=== PATIENT | male | born 1940 | race Caucasian/White ===

== ENCOUNTER 2019-12-30 11:54 | Inpatient (IN) | payer OTHER ==
[2019-12-30] MEDS ORDERED: CEFTRIAXONE/SWI 1gm 1 GM/10 ML SYR ONE (13:08)
[2019-12-30] MEDS ORDERED: NA CHLORIDE 0.9% 1,000 ML ONE ×2 (13:08→14:56)
[2019-12-30 13:11] LABS: Protime INR 1.16
--- NOTE | 2019-12-30 13:20 | RAD REPORT ---
EXAM DESCRIPTION: RAD - Chest Single View - 12/30/2019 1:02 pm CLINICAL HISTORY: COUGH Chest pain. COMPARISON: Chest Pa And Lat (2 Views) dated 10/06/2015 FINDINGS: Portable technique limits examination quality. The lungs are mildly emphysematous but grossly clear. The heart is normal in size. No displaced fract ures. IMPRESSION: No acute intrathoracic process suspected.
[2019-12-30 13:30] LABS: Albumin 2.4 g/dL (3.4-5.0); Bilirubin Direct 0.6 mg/dL (0-0.2); Bilirubin Total 1.1 mg/dL (0.2-1.0); Magnesium 2.1 mg/dL (1.8-2.4); Potassium 3.4 mmol/L (3.5-5.1); Protein, Total 6.1 g/dL (6.4-8.2); Troponin (Emerg Dept Use Only) 0.05 ng/mL (0.0-0.045)
[2019-12-30 13:32] LABS: Absolute Lymphocytes (CBC) 0.1 K/uL (0.7-4.9); Basophils % 0.2 % (0-1.3); Hematocrit 41.6 % (39.6-49.0); Lymphocytes % 1.3 % (15.3-44.8); MPV 8.9 fL (7.6-11.3); RBC Red Blood Cell Count 4.51 M/uL (4.33-5.43)
[2019-12-30 13:50] LABS: Blood Morphology Comment NOT SEEN (NOT SEEN); Platelet Estimate DECR; White Blood Cell Scan OK (OK)
--- NOTE | 2019-12-30 14:06 | EDPHYS ---
Physician Documentation [facility] Name: Ronan Mcnair Age: 79 yrs Sex: Male : 1940 Arrival Date: 12/30/2019 Time: 11:57 Bed 16 Private MD: Jimi Dudley V ED Physician Rashid Rodriguez HPI: 12/29 12:47 This 79 yrs old Male presents to ER via Wheelchair with complaints of Fever. prerna 12:47 The patient reports fever, that was measured at 100 degrees Fahrenheit. Onset: The prerna symptoms/episode began/occurred 4 day(s) ago. Modifying factors: there are no obvious modifying factors. Associated signs and symptoms: Pertinent positives: arthralgias, cough, myalgias, nausea. Severity of symptoms: At their worst the symptoms were mild moderate in the emergency department the symptoms are unchanged. The patient has experienced similar episodes in the past, a few times. Historical: - Allergies: 12:19 No Known Allergies; jd3 - PMHx: 12:19 Hypertension; jd3 - Immunization history:: Adult Immunizations up to date, Flu vaccine is up to date. - Social history:: Smoking status: unknown. ROS: 12:48 Eyes: Negative for injury, pain, redness, and discharge, ENT: Negative for injury, prerna pain, and discharge, Neck: Negative for injury, pain, and swelling, Cardiovascular: Negative for chest pain, palpitations, and edema, Respiratory: Negative for shortness of breath, cough, wheezing, and pleuritic chest pain, Abdomen/GI: Negative for abdominal pain, nausea, vomiting, diarrhea, and constipation, Back: Negative for injury and pain, : Negative for injury, bleeding, discharge, and swelling, MS/Extremity: Negative for injury and deformity, Skin: Negative for injury, rash, and discoloration, Psych: Negative for depression, anxiety, suicide ideation, homicidal ideation, and hallucinations, Allergy/Immunology: Negative for hives, rash, and allergies, Endocrine: Negative for neck swelling, polydipsia, polyuria, polyphagia, and marked weight changes, Hematologic/Lymphatic: Negative for swollen nodes, abnormal bleeding, and unusual bruising. 12:48 Constitutional: Positive for body aches, chills, fatigue, malaise, poor PO intake. 12:48 Neuro: Positive for weakness. Exam: 12:48 Constitutional: This is a well developed, well nourished patient who is awake, alert, prerna and in no acute distress. Head/Face: Normocephalic, atraumatic. Eyes: Pupils equal round and reactive to light, extra-ocular motions intact. Lids and lashes normal. Conjunctiva and sclera are non-icteric and not injected. Cornea within normal limits. Periorbital areas with no swelling, redness, or edema. ENT: Nares patent. No nasal discharge, no septal abnormalities noted. Tympanic membranes are normal and external auditory canals are clear. Oropharynx with no redness, swelling, or masses, exudates, or evidence of obstruction, uvula midline. Mucous membranes moist. Neck: Trachea midline, no thyromegaly or masses palpated, and no cervical lymphadenopathy. Supple, full range of motion without nuchal rigidity, or vertebral point tenderness. No Meningismus. Chest/axilla: Normal chest wall appearance and motion. Nontender with no deformity. No lesions are appreciated. Respiratory: Lungs have equal breath sounds bilaterally, clear to auscultation and percussion. No rales, rhonchi or wheezes noted. No increased work of breathing, no retractions or nasal flaring. Abdomen/GI: Soft, non-tender, with normal bowel sounds. No distension or tympany. No guarding or rebound. No evidence of tenderness throughout. Back: No spinal tenderness. No costovertebral tenderness. Full range of motion. Male : Normal genitalia with no discharge or lesions. Skin: Warm, dry with normal turgor. Normal color with no rashes, no lesions, and no evidence of cellulitis. MS/ Extremity: Pulses equal, no cyanosis. Neurovascular intact. Full, normal range of motion. Neuro: Awake and alert, GCS 15, oriented to person, place, time, and situation. Cranial nerves II-XII grossly intact. Motor strength 5/5 in all extremities. Sensory grossly intact. Cerebellar exam normal. Normal gait. Psych: Awake, alert, with orientation to person, place and time. Behavior, mood, and affect are within normal limits. 12:48 Cardiovascular: Rate: tachycardic, Rhythm: regular, Pulses: Pulses are 4+ in bilateral radial, brachial, femoral, popliteal, posterior tibial and and dorsalis pedis arteries.. Heart sounds: normal, Edema: is not appreciated, JVD: is not appreciated. 13:46 ECG was reviewed by the Attending Physician. prerna Vital Signs: 12:19 BP 91 / 68; Pulse 123; Resp 20 S; Temp 98.3(O); Pulse Ox 96% on R/A; Weight 65.77 kg jd3 (R); Height 5 ft. 7 in. (170.18 cm) (R); Pain 10/10; 13:18 BP 94 / 56; Pulse 106; Resp 15 S; Temp 98.4(O); Pulse Ox 95% on R/A; ca1 14:12 BP 105 / 57; Pulse 99; Resp 21 S; Pulse Ox 96% on R/A; ca1 15:17 BP 109 / 65; Pulse 102; Resp 20; Temp 98.7(O); Pulse Ox 98% on R/A; ca1 16:05 BP 113 / 62; Pulse 108; Resp 22; Pulse Ox 97% on R/A; ca1 12:19 Body Mass Index 22.71 (65.77 kg, 170.18 cm) jd3 MDM: 12:12 Patient medically screened. prerna 12:49 Differential diagnosis: viral Infection, bacterial infection, URI, pneumonia UTI, prerna gastroenteritis. Differential Diagnosis altered mental status, sepsis, flu. Data reviewed: vital signs, nurses notes, EMS record, lab test result(s), EKG, radiologic studies, CT scan, plain films. Data interpreted: desk monitor: rate is 123 beats/min, rhythm is regular, Pulse oximetry: on room air is 96 %. Test interpretation: by ED physician or midlevel provider: ECG, plain radiologic studies. Counseling: I had a detailed discussion with the patient and/or guardian regarding: the historical points, exam findings, and any diagnostic results supporting the discharge/admit diagnosis, lab results, radiology results, the need for further work-up and treatment in the hospital. 12/29 12:46 Order name: Basic Metabolic Panel [facility] 12/29 12:46 Order name: CBC with Diff [facility] 12/29 12:46 Order name: LFT's; Complete Time: 13:46 [facility] 12/29 12:46 Order name: Magnesium; Complete Time: 13:46 [facility] 12/29 12:46 Order name: NT PRO-BNP; Complete Time: 13:46 [facility] 12/29 12:46 Order name: PT-INR; Complete Time: 13:46 [facility] 12/29 12:46 Order name: Troponin (emerg Dept Use Only); Complete Time: 13:46 [facility] 12/29 12:46 Order name: Lipase; Complete Time: 13:46 [facility] 12/29 12:46 Order name: Urine Culture [facility] 12/29 12:46 Order name: Lactate; Complete Time: 13:46 [facility] 12/29 12:46 Order name: Procalcitonin; Complete Time: 14:00 [facility] 12/29 12:46 Order name: Influenza Screen (a \T\ B); Complete Time: 14:00 [facility] 12/29 12:46 Order name: Basic Metabolic Panel; Complete Time: 13:46 [facility] 12/29 12:46 Order name: XRAY Chest (1 view); Complete Time: 13:46 [facility] 12/29 12:47 Order name: CBC with Automated Diff; Complete Time: 14:00 [facility] 12/29 13:32 Order name: SARS-COV-2 RT PCR [facility] 12/29 13:50 Order name: CBC Smear Scan; Complete Time: 14:00 [facility] 12/29 14:00 Order name: CK; Complete Time: 14:31 [facility] 12/29 14:00 Order name: Ckmb; Complete Time: 14:31 [facility] 12/29 14:00 Order name: Pelvis XRAY [facility] 12/29 14:08 Order name: Blood Culture Adult (2) [facility] 12/29 14:11 Order name: Stool Culture [facility] 12/29 14:11 Order name: Fecal Leukocyte Stain [facility] 12/29 14:11 Order name: CDIFF [facility] 12/29 14:44 Order name: RAD [facility] 12/29 16:27 Order name: Lactate Sepsis 2 HR Follow-up [facility] 12/29 12:46 Order name: EKG; Complete Time: 12:47 [facility] 12/29 12:46 Order name: Cardiac monitoring; Complete Time: 12:53 [facility] 12/29 12:46 Order name: EKG - Nurse/Tech; Complete Time: 12:53 [facility] 12/29 12:46 Order name: IV Saline Lock; Complete Time: 12:52 [facility] 12/29 12:46 Order name: Labs collected and sent; Complete Time: 12:52 [facility] 12/29 12:46 Order name: O2 Per Protocol; Complete Time: 12:52 [facility] 12/29 12:46 Order name: O2 Sat Monitoring; Complete Time: 12:52 [facility] 12/29 12:46 Order name: Urine Dipstick-Ancillary (obtain specimen); Complete Time: 16:33 [facility] 12/29 14:32 Order name: PO challenge: water; Complete Time: 16:33 [facility] EC:46 Rate is 115 beats/min. Rhythm is regular. QRS [place] is Normal. OK interval is normal. prerna QRS interval is normal. QT interval is normal. No Q waves. T waves are Normal. No ST changes noted. Clinical impression: NSR w/ Non-specific ST/T Changes and No evidence of ischemia. Interpreted by me. Reviewed by me. Administered Medications: 12:54 Drug: NS 0.9% 1000 ml Route: IV; Rate: 1 bolus; Site: left forearm; ca1 14:00 Follow up: Response: No adverse reaction; IV Status: Completed infusion; IV Intake: ca1 1000ml 13:00 Drug: Rocephin 1 grams Route: IV; Rate: per protocol; Site: left forearm; ca1 13:30 Follow up: Response: No adverse reaction; IV Status: Completed infusion ca1 14:10 Drug: NS 0.9% 1000 ml Route: IV; Rate: 1 bolus; Site: right forearm; ca1 16:07 Follow up: Response: No adverse reaction; IV Status: Completed infusion; IV Intake: ca1 1000ml 14:35 Drug: Potassium Effervescent Tablet 25 mEq Route: PO; ca1 15:20 Follow up: Response: No adverse reaction ca1 14:52 Drug: Flagyl 500 mg Volume: 100 ml; Route: IVPB; Rate: 200 ml/hr; Infused Over: 30 ca1 mins; Site: left forearm; 15:24 Follow up: IV Status: Completed infusion; IV Intake: 100ml ca1 15:26 Drug: Cipro 200 mg Volume: 100 ml; Route: IVPB; Infused Over: 60 mins; Site: right ca1 antecubital; 16:30 Follow up: Response: No adverse reaction; IV Status: Completed infusion; IV Intake: ca1 200ml Disposition: 12/30/19 14:05 Hospitalization ordered by Jimi Dudley for Inpatient Admission. Preliminary diagnosis are Repeated falls, Weakness, Fever, unspecified, Diarrhea, unspecified, Hypokalemia, Sepsis, unspecified organism. - Bed requested for Telemetry/MedSurg (Inpatient). - Status is Inpatient Admission. ca1 - Condition is Fair. - Problem is new. - Symptoms have improved. Signatures: Dispatcher [employer] EDMN Rashid Rodriguez MD MD cha Davies, Jonathon RN RN jd3 Sintia Villalobos Cheryl, RN RN ca1 Corrections: (The following items were deleted from the chart) 13:31 12:47 CORONAVIRUS+MR.LAB.BRZ ordered. [facility] 15:55 14:05 Hospitalization Ordered by Jimi Dudley MD for Inpatient Admission. Preliminary eb diagnosis is Repeated falls; Weakness; Fever, unspecified; Diarrhea, unspecified; Hypokalemia; Sepsis, unspecified organism. Bed requested for Telemetry/MedSurg (Inpatient). Status is Inpatient Admission. Condition is Fair. Problem is new. Symptoms have improved. [facility] 16:48 15:55 12/30/2019 14:05 Hospitalization Ordered by Jimi Dudley MD for Inpatient ca1 Admission. Preliminary diagnosis is Repeated falls; Weakness; Fever, unspecified; Diarrhea, unspecified; Hypokalemia; Sepsis, unspecified organism. Bed requested for Telemetry/MedSurg (Inpatient). Status is Inpatient Admission. Condition is Fair. Problem is new. Symptoms have improved. eb
--- NOTE | 2019-12-30 14:06 | ER ---
Nurse's Notes [facility] Name: Ronan Mcnair Age: 79 yrs Sex: Male : 1940 Arrival Date: 12/30/2019 Time: 11:57 Bed 16 Private MD: Jimi Dudley V Diagnosis: Repeated falls;Weakness;Fever, unspecified;Diarrhea, unspecified;Hypokalemia;Sepsis, unspecified organism Presentation: 12/29 12:17 Chief complaint: Patient states: "For the past 3 days I have been having fever, nausea, jd3 vomiting, fever, and diarrhea. It has gotten so bad now that I am not able to walk and I get dizzy very easily. I was running a 102.7 fever and I took 1 Tylenol 500 mg before coming today.". Coronavirus screen: diarrhea, fatigue, fever, vomiting. Client presents with at least one sign or symptom that may indicate coronavirus-19. Standard/surgical mask placed on the client. Provider contacted for isolation considerations. Ebola Screen: Patient negative for fever greater than or equal to 101.5 degrees Fahrenheit, and additional compatible Ebola Virus Disease symptoms. Initial Sepsis Screen: Does the patient meet any 2 criteria? HR > 90 bpm. No. Patient's initial sepsis screen is negative. Does the patient have a suspected source of infection? No. Patient's initial sepsis screen is negative. Risk Assessment: Do you want to hurt yourself or someone else? Patient reports no desire to harm self or others. Onset of symptoms was December 27, 2019. 12:17 Method Of Arrival: Wheelchair jd3 12:17 Acuity: CROW 2 jd3 Historical: - Allergies: 12:19 No Known Allergies; jd3 - PMHx: 12:19 Hypertension; jd3 - Immunization history:: Adult Immunizations up to date, Flu vaccine is up to date. - Social history:: Smoking status: unknown. Screenin:10 Abuse screen: Denies threats or abuse. Denies injuries from another. Nutritional ca1 screening: No deficits noted. Tuberculosis screening: No symptoms or risk factors identified. Fall Risk IV access (20 points). Gait- Weak (10 pts.). Total Caraballo Fall Scale indicates Low Risk Score (25-44 pts). Fall prevention measures have been instituted. Side Rails Up X 2 Family Present and informed to notify staff if they need to leave bedside As available Patient and Family Educated on Fall Prevention Program and strategies. Assessment: 12:10 General: Appears in no apparent distress. comfortable, Behavior is calm, cooperative, ca1 appropriate for age, Reports fever for feeling ill for > 3 days. Pain: Complains of pain in right leg and left leg Pain does not radiate. Pain began 2-3 days ago. Neuro: Level of Consciousness is awake, alert, obeys commands, Oriented to person, place, time, situation. Cardiovascular: Heart tones S1 S2 present Capillary refill < 3 seconds Patient's skin is warm and dry. Pulses are all present. Rhythm is sinus tachycardia. Respiratory: Airway is patent Respiratory effort is even, unlabored, Respiratory pattern is regular, symmetrical, Breath sounds are clear bilaterally. Denies cough, shortness of breath. GI: Abdomen is flat, non-distended, Bowel sounds present X 4 quads. Abd is soft and non tender X 4 quads. Reports diarrhea, nausea. : No signs and/or symptoms were reported regarding the genitourinary system. EENT: No signs and/or symptoms were reported regarding the EENT system. Derm: Skin is intact, is healthy with good turgor, Skin is pink, warm \\T\\ dry. Musculoskeletal: Circulation, motion, and sensation intact. Capillary refill < 3 seconds. 13:18 Reassessment: Patient appears in no apparent distress at this time. Patient and/or ca1 family updated on plan of care and expected duration. Pain level reassessed. Patient is alert, oriented x 3, equal unlabored respirations, skin warm/dry/pink. 14:12 Reassessment: Patient appears in no apparent distress at this time. Patient and/or ca1 family updated on plan of care and expected duration. Pain level reassessed. Patient is alert, oriented x 3, equal unlabored respirations, skin warm/dry/pink. 15:17 Reassessment: Patient appears in no apparent distress at this time. Patient and/or ca1 family updated on plan of care and expected duration. Pain level reassessed. Patient is alert, oriented x 3, equal unlabored respirations, skin warm/dry/pink. 16:05 Reassessment: Patient appears in no apparent distress at this time. Patient and/or ca1 family updated on plan of care and expected duration. Pain level reassessed. Patient is alert, oriented x 3, equal unlabored respirations, skin warm/dry/pink. Vital Signs: 12:19 BP 91 / 68; Pulse 123; Resp 20 S; Temp 98.3(O); Pulse Ox 96% on R/A; Weight 65.77 kg jd3 (R); Height 5 ft. 7 in. (170.18 cm) (R); Pain 10/10; 13:18 BP 94 / 56; Pulse 106; Resp 15 S; Temp 98.4(O); Pulse Ox 95% on R/A; ca1 14:12 BP 105 / 57; Pulse 99; Resp 21 S; Pulse Ox 96% on R/A; ca1 15:17 BP 109 / 65; Pulse 102; Resp 20; Temp 98.7(O); Pulse Ox 98% on R/A; ca1 16:05 BP 113 / 62; Pulse 108; Resp 22; Pulse Ox 97% on R/A; ca1 12:19 Body Mass Index 22.71 (65.77 kg, 170.18 cm) [facility] ED Course: 11:57 Patient arrived in ED. as 11:57 Jimi Dudley MD is Private Physician. as 12:09 Fanny Estrella, LIGIA is Primary Nurse. ca1 12:10 Patient has correct armband on for positive identification. Placed in gown. Bed in low ca1 position. Call light in reach. Side rails up X2. potline monitor on. Pulse ox on. NIBP on. Warm blanket given. 12:12 Rashid Rodriguez MD is Attending Physician. prerna 12:19 Triage completed. jd3 12:20 Arm band placed on. jd3 12:50 No provider procedures requiring assistance completed. Initial lab(s) drawn, by me, ca1 sent to lab. Inserted saline lock: 20 gauge in left forearm, using aseptic technique. Blood collected. 13:02 XRAY Chest (1 view) In Process Unspecified. EDMS 13:19 Flu and/or RSV swab sent to lab. ca1 14:03 Jimi Dudley MD is Hospitalizing Provider. prerna 14:30 First set of blood cultures drawn by ED staff, Second set of blood cultures drawn by me.mh5 14:43 Inserted saline lock: 22 gauge in right antecubital area, using aseptic technique. mh5 Blood collected. 14:46 Blood Culture Adult (2) Sent. mh5 16:02 Repeat lab(s) drawn. by ED staff, sent to lab. Patient admitted, IV remains in place. ca1 16:33 Urine collected: straight cath specimen, cloudy. Straight cath inserted, using sterile ca1 technique, 16 Fr. Specimen obtained. Administered Medications: 12:54 Drug: NS 0.9% 1000 ml Route: IV; Rate: 1 bolus; Site: left forearm; ca1 14:00 Follow up: Response: No adverse reaction; IV Status: Completed infusion; IV Intake: ca1 1000ml 13:00 Drug: Rocephin 1 grams Route: IV; Rate: per protocol; Site: left forearm; ca1 13:30 Follow up: Response: No adverse reaction; IV Status: Completed infusion ca1 14:10 Drug: NS 0.9% 1000 ml Route: IV; Rate: 1 bolus; Site: right forearm; ca1 16:07 Follow up: Response: No adverse reaction; IV Status: Completed infusion; IV Intake: ca1 1000ml 14:35 Drug: Potassium Effervescent Tablet 25 mEq Route: PO; ca1 15:20 Follow up: Response: No adverse reaction ca1 14:52 Drug: Flagyl 500 mg Volume: 100 ml; Route: IVPB; Rate: 200 ml/hr; Infused Over: 30 ca1 mins; Site: left forearm; 15:24 Follow up: IV Status: Completed infusion; IV Intake: 100ml ca1 15:26 Drug: Cipro 200 mg Volume: 100 ml; Route: IVPB; Infused Over: 60 mins; Site: right ca1 antecubital; 16:30 Follow up: Response: No adverse reaction; IV Status: Completed infusion; IV Intake: ca1 200ml Intake: 14:00 IV: 1000ml; Total: 1000ml. ca1 15:24 IV: 100ml; Total: 1100ml. ca1 16:07 IV: 1000ml; Total: 2100ml. ca1 16:30 IV: 200ml; Total: 2300ml. ca1 Outcome: 14:05 Decision to Hospitalize by Provider. prerna 16:13 Admitted to Med/surg accompanied by tech, via wheelchair, room 210, with chart, Report ca1 called to 210 16:13 Condition: stable 16:13 Instructed on the need for admit. 16:48 Patient left the ED. ca1 Signatures: Dispatcher [employer] EDRashid Douglas MD MD cha Martinez, Amelia as Martinez Oralia 5 Scottie Mehta RN RN jd3 Fanny Estrella RN RN ca1 Corrections: (The following items were deleted from the chart) 12:20 12:17 Initial Sepsis Screen: Does the patient meet any 2 criteria? No. Patient's jd3 initial sepsis screen is negative. Does the patient have a suspected source of infection? No. Patient's initial sepsis screen is negative. jd3
--- NOTE | 2019-12-30 14:43 | RAD REPORT ---
EXAM DESCRIPTION: RAD - Pelvis - 12/30/2019 2:30 pm CLINICAL HISTORY: pain, falls COMPARISON: Chest Single View dated 12/30/2019; Chest Abdomen Pelvis W Cont dated 02/08/2019 FINDINGS: Mild osteopenia. Mild degenerative change in both hips. No acute fracture or dislocation. No radiographic findings of AVN.
[2019-12-30] MEDS ORDERED: METRONIDAZOLE 500mg IVPB 500 MG/100 ML BAG IV ONE (14:56)
[2019-12-30] MEDS ORDERED: POTASSIUM 25 MEQ EFFERV TAB ONE (14:56)
[2019-12-30] MEDS ORDERED: Ciprofloxacin 200mg IV 200 MG/100 ML IV.SOLN. IV ONE (14:56)
[2019-12-30] MEDS ORDERED: NA CHLORIDE 0.9% 1,000 ML IV SCH ×2 (16:20→21:00)
[2019-12-30] MEDS ORDERED: ONDANSETRON 4 MG/2 ML VIAL IV PRN (16:20)
[2019-12-30] MEDS ORDERED: MORPHINE 2 MG/ML SYR IV PRN (16:20)
[2019-12-30] MEDS ORDERED: ACETAMINOPHEN 325 MG TABLET PO PRN (16:20)
[2019-12-30 17:41] VITALS: BMI 22.7
--- NOTE | 2019-12-30 20:56 | P.HP ---
Certification for Inpatient Patient admitted to: Inpatient With expected LOS: >2 Midnights Practitioner: I am a practitioner with admitting privileges, knowledge of patient current condition, hospital course, and medical plan of care. Services: Services provided to patient in accordance with Admission requirements found in Title 42 Section 412.3 of the Code of Federal Regulations Patient History Date of Service: 12/30/19 Reason for admission: NOT ABLE TO WALK WITHOUT FALLING, FEVER. History of Present Illness: MR. SCHNEIDER CALLS ME A FEW DAYS AGO WITH EAR PAIN AND CONGESTION. HE WAS GIVEN AUGEMTIN AFTER A TELEHEALTH VISIT. TODAY CALLS ME ON TUESDAY THAT HE IS STUMBLING AND STILL HAS FEVER. I ASKED HER TO BRING HIM TO ER. WE FIND THAT HE HAS DEHYDRATION ON LABWORK, MILD ELEVATION OF WBC COUNT, HIGH LACTATE AND HIGH PROCALCITONIN. WE COULD NOT DO CT SCAN OF ABDOMEN CREAT IS MILD HIGH. HE TODAY SAYS HE HAS NO EAR PAIN OR ANY CONGESTION. HE DEVELOPED DIARRHEA AFTER AUGMENTIN. HE COMPLAINS OF UPPER THIGH PAIN NEAR THE GROINS ON BOTH SIDES. HE LIVES IN [place]. Allergies No Known Allergies Allergy (Unverified 12/30/19 16:19) Home Medications: Aspirin [Aspirin EC 81 MG] 81 mg PO BEDTIME 12/30/19 Bacillus Coagulans [Probiotic] 2 gum PO DAILY 12/30/19 Carvedilol [Coreg] 3.125 mg PO BID 12/30/19 Clopidogrel Bisulfate [Plavix*] 75 mg PO DAILY 12/30/19 Codeine/APAP [Tylenol #3*] 1 tab PO TIDP PRN 12/30/19 Levothyroxine [Synthroid*] 100 mcg PO DAILY 12/30/19 Liothyronine Sodium [Cytomel] 5 mcg PO DAILY 12/30/19 Lisinopril [Zestril] 10 mg PO DAILY 12/30/19 Montelukast [Singulair*] 10 mg PO DAILY 12/30/19 Multivitamin 1 tab PO DAILY 12/30/19 Pravastatin Sodium 40 mg PO DAILY 12/30/19 Ubidecarenone [Co Q-10] 2 cap PO DAILY 12/30/19 Vit C/E/Zn/Coppr/Lutein/Zeaxan [Preservision Areds 2 Softgel] 1 cap PO DAILY 12/30/19 - Past Medical/Surgical History Has patient received pneumonia vaccine in the past: No Diabetic: No -: Hypertension -: Arthritis -: Hypothyroidism -: Hyperlipidemia -: GERD -: Cardiac Stents x3 2017 -: Throat stretched x 3 -: Bilateral Cataracts removal -: Hernia surgery - Family History Father -: Heart disease Notes: - heart attack Mother Notes: - alzheimer's - Social History Smoking Status: Never smoker Alcohol use: Yes CD- Drugs: No Caffeine use: No Place of Residence: Home Review of Systems 10-point ROS is otherwise unremarkable General: Weakness, Malaise Neurological: Incoordination, As per HPI Physical Examination - Vital Signs Temperature: 102.2 F Blood Pressure: 112/58 Pulse: 125 Respirations: 20 Pulse Ox (%): 94 - Physical Exam General: Mild distress HEENT: Atraumatic, PERRLA, Mucous membr. moist/pink, EOMI, Sclerae nonicteric Neck: Supple, 2+ carotid pulse no bruit, No LAD, Without JVD or thyroid abnormality Respiratory: Clear to auscultation bilaterally, Normal air movement Cardiovascular: Regular rate/rhythm, Normal S1 S2 Gastrointestinal: Normal bowel sounds, No tenderness Musculoskeletal: No tenderness Integumentary: No rashes Neurological: Normal speech, Sensation intact, Normal affect, Abnormal strength (HE IS NOT ABLE TO LIFT THIGHS UP WITHOUT PAIN ON EITHER SIDE.), Abnormal reflexes (BOTH SIDES ALL REFLEXES ARE ABSENT BUT ALSO HE IS IN PAIN , THAT CAN GIVE FALSE NEGATIVE.) Lymphatics: No axilla or inguinal lymphadenopathy - Studies Laboratory Data (last 24 hrs) 12/30/19 13:01: PT 13.6 H, INR 1.16 12/30/19 13:01: WBC 11.2 H, Hgb 14.5, Hct 41.6, Plt Count 85 L 12/30/19 13:01: Sodium 134 L, Potassium 3.4 L, BUN 46 H, Creatinine 1.83 H, Glucose 125 H, Magnesium 2.1, Total Bilirubin 1.1 H, AST 86 H, ALT 69, Alkaline Phosphatase 45, Lipase 99 Microbiology Data (last 24 hrs): 12/30/19 13:17 Nasopharnyx Influenza Type A Antigen Screen - Final 12/30/19 13:17 Nasopharnyx Influenza Type B Antigen Screen - Final Assessment and Plan - Problems (Diagnosis) (1) FUO (fever of unknown origin) Current Visit: Yes Status: Acute Plan: PATIENT HAS FEVER, HAD EAR PAIN BUT NOT ANY LONGER, HE DOES NOT HAVE ANY MENINGIAL SIGNS BUT THIGHS ARE PAINFUL AND LIFTING LEGS GIVES HIM PAIN IN ANTERIOR THIGHS UPPER ENDS. I DON'T SEE A CLEAR SIGN OF INFECTION SOURCE. CXR NEG, ABDOMEN IS SOFT, DIARRHEA MAY BE FROM AUGMNETIN. HE DOES NOT HAVE CLEAR MENINGEAL SIGNS. I WILL STILL ORDER MRI OF LS SPINE, MRI OF BRAIN AND SPINAL TAP. HE DOES NOT LIVE IN [place] WHERE NAEGLERIA FOWLERI HAS BEEN FOUND IN THE WATER SYSTEM. THIS AMEBA IS ONLY DANGEROUS IF IT REACHES CRIBRIFORM PLATE OF THE NOSE AT THE HIGHEST END. SPINAL TAP IS NECESSARY HE HAS THIGH PAINS AND IS NOT ABLE TO LIFT LEGS WITHOUT TOO MUCH PAIN. I WILL ALSO CHECK CPK, ALDOLASE, VIT D. BLOOD CULTURES ARE PENDING. I WILL COVER HIM WITH VANCOMYCIN AND MERREM UNTIL THIS HAS BEEN RULED OUT TO BE MENINGITIS. MEDICATIONS LIKE CORIFUNGIN ARE NOT AVAILABLE HERE. SUSPICION IS LOW FOR AMEBIC INFECTION. DISCUSSED WITH . 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 - Advance Directives Does patient have a Living Will: No Does patient have a Durable POA for Healthcare: No
[2019-12-30] MEDS: FAMOTIDINE 20 MG/2 ML VIAL IV SCH (21:00)
[2019-12-30] MEDS ORDERED: Ciprofloxacin 200mg IV 200 MG/100 ML IV.SOLN. IV SCH (21:00)
[2019-12-30] MEDS ORDERED: METRONIDAZOLE 500mg IVPB 500 MG/100 ML BAG IV SCH (21:00)
[2019-12-30] MEDS ORDERED: CODEINE 30MG/APAP 300MG TAB PO PRN (21:22)
[2019-12-30 21:43] LABS: MPV 9.3 fL (7.6-11.3)
[2019-12-30 22:00] LABS: Platelet Estimate DECR
[2019-12-30] MEDS ORDERED: VANCOMYCIN/NS 1 gm 1 GM/250 ML BAG IVPB ONE ×2 (22:00→22:15)
[2019-12-30] MEDS ORDERED: Ringers Lactate 1,000 ML IV ONE (22:00)
[2019-12-30] MEDS ORDERED: NA CHLORIDE 0.9% 250 ML ONE (22:18)
[2019-12-30] MEDS ORDERED: VANCOMYCIN 1 GM/VIAL ONE (22:21)
[2019-12-31] MEDS ORDERED: Meropenem 500 MG VIAL IV SCH (01:00)
[2019-12-31] MEDS ORDERED: Meropenem 500 MG in NA CHLORIDE 0.9% 100 ML IV SCH (01:00)
[2019-12-31] MEDS: Ringers Lactate 1,000 ML IV SCH ×6 (03:02→23:07)
[2019-12-31 04:36] LABS: Absolute Lymphocytes (CBC) 0.3 K/uL (0.7-4.9); Basophils % 0.2 % (0-1.3); Hematocrit 38.4 % (39.6-49.0); Lymphocytes % 2.1 % (15.3-44.8); MPV 8.9 fL (7.6-11.3); RBC Red Blood Cell Count 4.15 M/uL (4.33-5.43)
[2019-12-31 05:12] LABS: Potassium 3.6 mmol/L (3.5-5.1)
[2019-12-31] MEDS ORDERED: LEVOTHYROXINE SOD 0.1 MG TAB PO SCH (06:30)
[2019-12-31] MEDS ORDERED: LIOTHYRONINE SOD 5 MCG TAB PO SCH (06:30)
--- NOTE | 2019-12-31 07:23 | RAD REPORT ---
EXAM DESCRIPTION: US - Extrem Venous W Compress Vidal - 12/30/2019 10:11 pm CLINICAL HISTORY: LEG PAINS COMPARISON: None. TECHNIQUE: Real-time sonographic evaluation of the bilateral lower extremity common femoral, superfi cial femoral, popliteal and posterior tibial veins was performed. FINDINGS: Normal compressibility, flow augmentation, phasic flow and spontaneous flow are identified in the left and right lower extremity common femoral, superficial femoral, popliteal and posterior t ibial veins. No intraluminal filling defects seen. IMPRESSION: No DVT in either lower extremity.
[2019-12-31 07:29] LABS: Bilirubin Direct 0.9 mg/dL (0-0.2); Bilirubin Total 1.3 mg/dL (0.2-1.0); Protein, Total 4.8 g/dL (6.4-8.2)
[2019-12-31] MEDS: carvediloL 3.125 MG TAB PO SCH ×2 (08:14→21:27)
[2019-12-31] MEDS: Meropenem 500 MG in NA CHLORIDE 0.9% 100 ML IV SCH ×2 (08:14→21:26)
[2019-12-31] MEDS: FAMOTIDINE 20 MG/2 ML VIAL IV SCH ×2 (08:14→21:27)
[2019-12-31] MEDS ORDERED: PNEUMOCOCCAL VACCINE 0.5 ML IMVAC ONE (09:00)
[2019-12-31] MEDS ORDERED: LACTOBACILLUS/ACIDOPHILUS TAB PO SCH (09:00)
[2019-12-31] MEDS ORDERED: ENOXAPARIN 40 MG/0.4 ML SQ SCH (09:00)
[2019-12-31] MEDS ORDERED: CLOPIDOGREL 75 MG TABLET PO SCH (09:00)
--- NOTE | 2019-12-31 10:17 | RAD REPORT ---
EXAM DESCRIPTION: CT - Head Brain Wo Cont - 12/31/2019 9:03 am CLINICAL HISTORY: fever weakness COMPARISON: No comparisons TECHNIQUE: Axial 5 mm thick images of the head were obtained without IV contrast. All CT scans are performed using dose optimization technique as appropriate and may include automated exposure control or mA/KV adjustment according to patient size. FINDINGS: No intracranial hemorrhage, mass, edema or shift of mid-line structures. No acute infarcti on changes seen. No abnormal extra-axial fluid collections. Mild atrophy and chronic ischemic changes are present. Ventricles are in proportion to the volume loss. Mastoid air cells are clear. There is complete opacification of the right maxillary sinus with sinus wall changes indicating chronic disease. No acute bony findings. IMPRESSION: Mild atrophy and chronic ischemic change. No acute intracranial finding. Chronic right maxillary sinusitis with complete sinus opacification.
--- NOTE | 2019-12-31 10:23 | RAD REPORT ---
EXAM DESCRIPTION: RAD - Lumbar Puncture For Dx - 12/31/2019 10:16 am CLINICAL HISTORY: Headache, meningitis COMPARISON: None. TECHNIQUE: The procedure, risks and alternatives to the procedure were discussed with the patient in detail. After answering all questions, both oral and written consent were obtained. Time-out proced ure was performed. The patient was placed in an oblique prone position on the fluoroscopic table. The skin of the lower back was prepped and draped in the usual sterile fashion. After anesthetizing the skin and deeper sof t tissues with 1% lidocaine, a 22 gauge needle was advanced into the thecal sac at the L4 level. Clear colorless CSF was observed. Approximately 8 mL of CSF was obtained and retained for physician o rdered studies. At the conclusion of the procedure, the needle was withdrawn and a sterile bandage placed over the pu ncture site. The patient tolerated the procedure well without immediate complications. Post-procedu re care and precaution instructions were discussed with the patient before the LP procedure. Patient was transferred back to the floor for continued care. A single fluoroscopic image was retained. Fluoro time was 2.0 minutes. IMPRESSION: Successful fluoroscopic guided lumbar puncture. All obtained fluid was sent to the lab for studies requested by the referring physician.
[2019-12-31 11:10] LABS: CSF Glucose 46 mg/dL (40-70)
[2019-12-31] MEDS ORDERED: NA CHLORIDE 0.9% 500 ML IV ONE (11:11)
--- NOTE | 2019-12-31 13:07 | P.PN ---
Subjective Date of Service: 12/31/19 Chief Complaint: NOT ABLE TO WALK WITHOUT FALLING, FEVER. Subjective: No new changes, C/O voiced MR. SCHNEIDER SAYS HE IS SOMEWHAT BETTER IN UPPER THIGH PAIN. HE IS STILL VERY WEAK. HE DENIES CHEST PAIN, COUGHING OR EAR PAIN. Review of Systems 10-point ROS is otherwise unremarkable General: Weakness, Malaise Physical Examination - Vital Signs Temperature: 98.5 F Blood Pressure: 101/61 Pulse: 115 Respirations: 20 Pulse Ox (%): 96 - Physical Exam General: Mild distress, Moderate distress HEENT: Atraumatic, PERRLA, EOMI Neck: Supple, JVD not distended Respiratory: Clear to auscultation bilaterally, Normal air movement Cardiovascular: Regular rate/rhythm, Normal S1 S2 Gastrointestinal: Normal bowel sounds, No tenderness Musculoskeletal: No tenderness, Tenderness (UPPER THIGH TENDER. NO INFLAMMATION. ) Integumentary: No rashes Neurological: Other (PAINFUL HIP FLEXURE MOVEMENTS.) Lymphatics: No axilla or inguinal lymphadenopathy - Studies Laboratory Data (last 24 hrs) 12/30/19 13:01: PT 13.6 H, INR 1.16 12/30/19 13:01: WBC 11.2 H, Hgb 14.5, Hct 41.6, Plt Count 85 L 12/30/19 13:01: Sodium 134 L, Potassium 3.4 L, BUN 46 H, Creatinine 1.83 H, Glucose 125 H, Magnesium 2.1, Total Bilirubin 1.1 H, AST 86 H, ALT 69, Alkaline Phosphatase 45, Lipase 99 Microbiology Data (last 24 hrs): 12/30/19 13:17 Nasopharnyx Influenza Type A Antigen Screen - Final 12/30/19 13:17 Nasopharnyx Influenza Type B Antigen Screen - Final Medications List Reviewed: Yes Assessment And Plan - Current Problems (Diagnosis) (1) FUO (fever of unknown origin) Current Visit: Yes Status: Acute Plan: PATIENT HAS FEVER, HAD EAR PAIN BUT NOT ANY LONGER, HE DOES NOT HAVE ANY MENINGIAL SIGNS BUT THIGHS ARE PAINFUL AND LIFTING LEGS GIVES HIM PAIN IN ANTERIOR THIGHS UPPER ENDS. I DON'T SEE A CLEAR SIGN OF INFECTION SOURCE. CXR NEG, ABDOMEN IS SOFT, DIARRHEA MAY BE FROM AUGMNETIN. HE DOES NOT HAVE CLEAR ME NINGEAL SIGNS. I WILL STILL ORDER MRI OF LS SPINE, MRI OF BRAIN AND SPINAL TAP. HE DOES NOT LIVE IN [place] WHERE NAEGLERIA FOWLERI HAS BEEN FOUND IN THE WATER SYSTEM. THIS AMEBA IS ONLY DANGEROUS IF IT REACHES CRIBRIFORM PLATE OF THE NOSE AT THE HIGHEST END. SPINAL TAP IS NECESSARY HE HAS THIGH PAINS AND IS NOT ABLE TO LIFT LEGS WITHOUT TOO MUCH PAIN. I WILL ALSO CHECK CPK, ALDOLASE, VIT D. BLOOD CULTURES ARE PENDING. I WILL COVER HIM WITH VANCOMYCIN AND MERREM UNTIL THIS HAS BEEN RULED OUT TO BE MENINGITIS. MEDICATIONS LIKE CORIFUNGIN ARE NOT AVAILABLE HERE. SUSPICION IS LOW FOR AMEBIC INFECTION. DISCUSSED WITH . 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 NEG SPINAL TAP. CT SCAN CAN'T BE DONE JAGRUTI BALLARD. SONOGRAM PENDING. (2) Pain in both thighs Current Visit: Yes Status: Acute Plan: UNCLEAR WHY HE HAS THIS. CPK IS NORMAL MENINGITIS HAS BEEN RULED OUT. MRI MACHINE HAS BROKEN HERE AT [facility]. HE NEEDS MRI OF LS. (3) Thrombocytopenia Current Visit: Yes Status: Acute Plan: THIS IS RELATED TO SEPSIS. I WILL STOP LOVENOX. HE DID NOT GET ANY DOSE YET. SCD FOR DVT PX. (4) Acute renal insufficiency Current Visit: Yes Status: Acute Plan: THIS IS FROM LOW BP. IV FLUIDS AND BOLUSES GIVEN PRN. BP IS BETTER NOW.
--- NOTE | 2019-12-31 15:10 | RAD REPORT ---
EXAM DESCRIPTION: US - Abdomen Exam Complete - 12/31/2019 2:52 pm CLINICAL HISTORY: Abdominal pain. abdominal pain COMPARISON: No comparisons FINDINGS: Mild fatty liver is noted. No focal liver lesions or intrahepatic biliary dilatation is se en. Mild ascites right upper quadrant. The gallbladder demonstrates no gallstones, pericholecystic fluid or gallbladder wall thickening. Co mmon bile duct is not well visualized. Both kidneys are normal in size, shape and echotexture. Mild right-sided hydronephrosis. The spleen is normal in size measuring 11 cm. The pancreas and aorta are obscured by bowel gas. The visualized aspects of the IVC are grossly normal. IMPRESSION: Mild fatty liver is seen with mild right upper quadrant free fluid. Mild right hydronephrosis.
--- NOTE | 2019-12-31 15:11 | RAD REPORT ---
EXAM DESCRIPTION: US - Pelvis Complete - 12/31/2019 2:52 pm CLINICAL HISTORY: abdominal pain Pelvic pain. COMPARISON: Pelvis dated 12/30/2019; Lumbar Puncture For Dx dated 12/31/2019 FINDINGS: No pelvic mass or free fluid is seen. Grossly unremarkable urinary bladder. IMPRESSION: Negative study.
[2019-12-31] MEDS: dexAMETHasone 4 MG/ML VIAL IV SCH ×3 (15:47→23:04)
--- NOTE | 2019-12-31 17:10 | RAD REPORT ---
EXAM DESCRIPTION: CT - Head angio - 12/31/2019 4:57 pm CLINICAL HISTORY: worsening paralysis Headache, drowsiness, paralysis COMPARISON: Head Brain Wo Cont dated 12/31/2019; Chest Abdomen Pelvis W Cont dated 02/08/2019 TECHNIQUE: CT angiography of the head was performed with MIPs. All CT scans are performed using dose optimization technique as appropriate and may include automated exposure control or mA/KV adjustment according to patient size. FINDINGS: No evidence of aneurysm is detected. No flow-limiting stenosis or vascular malformation id entified. Antegrade flow is seen in the vertebral arteries. The vertebral arteries are codominant. The visualized dural venous sinuses are patent. IMPRESSION: No significant flow abnormality is detected.
[2019-12-31 17:44] LABS: CSF Glucose ND mg/dL (40-70)
[2019-12-31 18:05] LABS: Appearance CLEAR (CLEAR); Body Fluid Source CSF; Body Fluid WBC 0 /mm^3; Color of fluid Colorless (COLORLESS); Fluid Total Volume 2 ml
[2019-12-31] MEDS ORDERED: ASPIRIN EC 81 MG TAB PO SCH (21:00)
--- NOTE | 2019-12-31 23:29 | CON ---
Reason For Consultation: Consultation called because of progressive painful weakness in the legs and arms. History Of Present Illness: Mr. Mcnair is a 79-year-old right-handed patient with hyperte nsion, who developed a 2 weeks worth of slowly progressive weakness, more in the legs and arms and in parallel, the patient had nausea, vomiting, diarrhea, and fever up to 103. He was taking Tylenol, w hich helped transiently, but did not improve. He also had some vomiting and was brought to [facility] on 12/30/2019. His workup included a COVID-19 test, which was negative. His head CT scan showed mild atrophy and chronic ischemic change, and it was done without contrast. The MRI machine has been done and is unable to get MRI. He did have a lumbar puncture, which showed normal protein o f 42, glucose normal at 46, and white blood cells were 0, red blood cells 20. He does have pending V DRL and other CSF studies. His chemistries show an elevated creatinine of 1.88. His procalcitonin o n admission was elevated to 8.17 and lactic acid elevated to 3.3. He was treated because of that for sepsis and sepsis protocol and he also had tachycardia with hypotension suggestive of potential sept ic shock. He received fluids and now he is treated with steroids with slight improvement in his lowe r and upper extremity strength, but still has pain throughout his entire body, especially when touche d in the legs and arms. Regarding potential sick contacts, he denies any exposure to sick contacts and this was confirmed by the patient's and daughter, and his is on the phone and daughter in the room. Past Medical History: Hypertension, dyslipidemia, hypothyroidism, arthritis, gastroesophageal reflux disease. Allergies: NO KNOWN DRUG ALLERGIES. Medications: At home, aspirin 81 mg daily, carvedilol 3.125 mg twice daily, probiotics daily, Plavix 75 mg daily, Tylenol 3 as needed, Synthroid 100 mcg daily, lisinopril 10 mg daily, Singulair 10 mg d aily, multivitamin daily, pravastatin 40 mg daily, CoQ10 daily, and he has PreserVision AREDS 2 soft gels daily. Past Surgical History: He has 3 stents in 2017, dilatation of the esophagus 3 times, cataracts, nilay ia surgery. Family History: Mother had heart disease and of heart attack and mother of liver disease. Social History: Does drink alcohol, but no cigarettes. Review of Systems: As indicated, he has a progressive weakness in the legs more than arms, fevers, nausea, vomiting, julianna rrhea, and he has pain throughout the entire body. Physical Examination: Vital Signs: Currently, blood pressure 110/58, T-max today 100.8, respiratory rate 16 to 18, oxygen saturation 99%, down to 96% on room air. Weight 145 pounds, height 5 feet 7 inches, BMI 22.7. General: Mr. Mcnair is resting. Extremities: No significant clubbing, cyanosis, or edema. Neurologic: Alert and oriented to person, place, time, and situation. Follows all commands appropri ately. He has no cranial nerve deficits on 2 through 12. On motor examination, in the deltoids 2/5, in the biceps and triceps 2 to 3/5, finger strength is 2 to 3/5 bilaterally, lower extremities proxi domingo 1/5 at hip flexors, knee flexors are 2+/5, knee extensors 1/5, and foot plantar and dorsiflexio n 1/5 bilaterally. Sensory exam, he has a stocking-glove loss to temperature, touch in the legs and arms. Reflexes are absent in the upper and lower extremities. Coordination, unable to assess becaus e of severe weakness. Gait, unable to walk because of severe weakness. Laboratory Studies: Complete blood count with differential shows white blood cell count 11.7 with 96 .7% neutrophils, hemoglobin and hematocrit 13.4 and 38.4, MCV is higher of 58. INR 1.16. Most recen t lactic acid 3.7, procalcitonin is 38.17, creatinine 1.83, sodium 134, creatinine 3.4. COVID-19 is negative. UA is pending. His CT angiogram of the head is unremarkable. Head CT scan, no acute isch emic or hemorrhagic change. Carotid ultrasound shows no abnormalities. Assessment: Mr. 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 He has possible demyelinating loss in the lower extremities and upper extremities cranial nerve involvement. He does sinclair ve evidence of possible infection with elevated procalcitonin and lactic acid on admission and at one point had hypotension with tachycardia versus shock. He has received IV fluids and is now on steroi ds. He has received multiple antibiotics including meropenem, vancomycin, Rocephin, and now again is on Decadron 8 mg IV every 6 hours. Plan: 1.Continue with current course of medication. 2.The patient is best suited by being transferred to a facility that can do EMG nerve conduction helga dy of his lower extremities along with MRI with contrast of the cord and brain. He may also require a repeat lumbar puncture. 3.He may be best served by having IVIG per protocol administered. 4.He will require physical therapy to restrengthened in the arms and legs. 5.Continue with management of hypothyroidism and other comorbid conditions. 6.He should have his saturations monitored for the potential need to assist with respirations, which at this point appear to be very stable. If there is any indication of deterioration in the respirat ory system, he should be in the ICU for close observation and potential intubation if need be. At th is point, the patient is best served by transferring for higher level of care better manag ed. BONI Voice ID: [id number] Report ID: [id number]
[2020-01-01 00:21] VITALS: BP 107/66; TEMP 98.5
[2020-01-01 01:01] VITALS: O2SAT 94
[2020-01-01] MEDS ORDERED: VANCOMYCIN/NS 1 gm 1 GM/250 ML BAG IVPB SCH (06:00)
--- NOTE | 2020-01-01 06:46 | P.DS ---
Admission Date: 12/30/19 Discharge Date: 01/01/20 Disposition: TRANSFER TO [facility] Reason for Admission: NOT ABLE TO WALK WITHOUT FALLING, FEVER. - Problems (1) FUO (fever of unknown origin) Status: Acute (2) Pain in both thighs Status: Acute (3) Thrombocytopenia Status: Acute (4) Acute renal insufficiency Status: Acute Brief History of Present Illness: MR. SCHNEIDER CALLS ME A FEW DAYS AGO WITH EAR PAIN AND CONGESTION. HE WAS GIVEN AUGEMTIN AFTER A TELEHEALTH VISIT. TODAY CALLS ME ON TUESDAY THAT HE IS STUMBLING AND STILL HAS FEVER. I ASKED HER TO BRING HIM TO ER. WE FIND THAT HE HAS DEHYDRATION ON LABWORK, MILD ELEVATION OF WBC COUNT, HIGH LACTATE AND HIGH PROCALCITONIN. WE COULD NOT DO CT SCAN OF ABDOMEN CREAT IS MILD HIGH. HE TODAY SAYS HE HAS NO EAR PAIN OR ANY CONGESTION. HE DEVELOPED DIARRHEA AFTER AUGMENTIN. HE COMPLAINS OF UPPER THIGH PAIN NEAR THE GROINS ON BOTH SIDES. HE LIVES IN [place]. Hospital Course: MR. SCHNEIDER GOT SICK AFTER MOWING LAWN WITH CONGESTION AND EAR PAIN. ON TELEVISIT I GAVE HIM AUGMENTIN AND AFTER THAT HE HAD DIARRHEA. ON TUESDAY HIS CALLED AND SAID HE WAS STUMBLING AND NOT WALKING WELL. I ASKD HIM TO COME TO ER. HE ALSO HAD FEVER. ON FULL EVALUATION I DID NOT SEE A SOURCE OF FEVER. CXR, SONOGRAM, UA, CT BRAIN AND SPINAL TAP DID NOT SHOW INFECTION SOURCE. HIS PAINFUL BILATERAL LOWER LIMB WEAKNESS SPREAD TO UPPER LIMBS WITHIN HOURS. I STARTED HIM ON DEXAMETHASONE IV WITH SUSPICION OF INFLAMMATORY NUEROPATHY. DR. LEE CONFRIMED THAT DIAGNOSIS OF GBS. PATIENT WAS TRANSFERRED TO [facility] FOR FURTHER CARE. Vital Signs/Physical Exam: Temp Pulse Resp BP Pulse Ox 98.5 F 96 H 17 107/66 94 01/01/20 00:00 01/01/20 00:00 01/01/20 00:00 01/01/20 00:00 01/01/20 00:00 Laboratory Data at Discharge: WBC 11.7 K/uL (4.3-10.9) H 12/31/19 04:10 Hgb 13.4 g/dL (13.6-17.9) L 12/31/19 04:10 Hct 38.4 % (39.6-49.0) L 12/31/19 04:10 Plt Count 67 K/uL (152-406) L 12/31/19 04:10 PT 13.6 SECONDS (9.5-12.5) H 12/30/19 13:01 INR 1.16 12/30/19 13:01 Sodium Cancelled 01/01/20 05:00 Potassium Cancelled 01/01/20 05:00 BUN Cancelled 01/01/20 05:00 Creatinine Cancelled 01/01/20 05:00 Glucose Cancelled 01/01/20 05:00 Magnesium Cancelled 01/01/20 05:00 Total Bilirubin 1.3 mg/dL (0.2-1.0) H 12/31/19 04:10 AST 76 U/L (15-37) H 12/31/19 04:10 ALT 48 U/L (12-78) 12/31/19 04:10 Alkaline Phosphatase 36 U/L (45-117) L 12/31/19 04:10 Troponin I 0.06 ng/mL (0.0-0.045) H 12/30/19 19:42 Lipase 99 U/L (73-393) 12/30/19 13:01 Home Medications: Aspirin [Aspirin EC 81 MG] 81 mg PO BEDTIME 12/30/19 Bacillus Coagulans [Probiotic] 2 gum PO DAILY 12/30/19 Carvedilol [Coreg] 3.125 mg PO BID 12/30/19 Clopidogrel Bisulfate [Plavix*] 75 mg PO DAILY 12/30/19 Codeine/APAP [Tylenol #3*] 1 tab PO TIDP PRN 12/30/19 Levothyroxine [Synthroid*] 100 mcg PO DAILY 12/30/19 Liothyronine Sodium [Cytomel] 5 mcg PO DAILY 12/30/19 Lisinopril [Zestril] 10 mg PO DAILY 12/30/19 Montelukast [Singulair*] 10 mg PO DAILY 12/30/19 Multivitamin 1 tab PO DAILY 12/30/19 Pravastatin Sodium 40 mg PO DAILY 12/30/19 Ubidecarenone [Co Q-10] 2 cap PO DAILY 12/30/19 Vit C/E/Zn/Coppr/Lutein/Zeaxan [Preservision Areds 2 Softgel] 1 cap PO DAILY 12/30/19
--- NOTE | 2020-01-01 13:38 | PN ---
Date of Progress Note: 12/31/2019 Chief Complaint: Acute on chronic kidney injury. History Of Present Illness: Acute kidney injury, nonoliguric in setting of volume depletion. The pa jonathan was admitted to this hospital because of generalized weakness, he was found to have volume depl etion. White count was elevated and he was found to have high lactate acid. His procalcitonin was e levated. Patient had CT scan of the abdomen and pelvis to check for any evidence of hydronephrosis a nd obstructive uropathy. He was started on IV fluids. He had poor p.o. intake before this admission as well as he developed diarrhea after Augmentin was used outpatient for an upper respiratory infect ion. Patient has multiple medical problems including history of hypertension. He was taking lisinop ril, carvedilol and he is on pravastatin for hypercholesterolemia. He does not have diabetes. Patient denies dysuria, hematuria or kidney problems before he did denies kidney stones. Review of Systems: Denies fever, chills. Eyes: Denies vision changes. Ears Nose mouth and Throat: Denies sore throat, earache. Respiratory: Denies PND, orthopnea. Cardiovascular: Denies chest pain, palpitation. GI: Had nausea, vomiting, and some diarrhea prerenal to this admission. Denies melena, hematemesis. : Denies dysuria, hematuria, incomplete voiding. All other systems reviewed and all are negative. Past Medical History: Hypertension, osteoarthritis, hypothyroidism, hyperlipidemia, GERD, cardiac st ent, bilateral cataract removal, hernia surgery. Family History: Heart disease, mother had Alzheimer dementia. Social History: Denies tobacco, alcohol, or illicit drugs. Physical Examination: Vital Signs: Blood pressure 112/50, heart rate is 125, temperature was 102.2 on admission, respirato ry rate 20, pulse oximeter 94. General: Patient is not in acute distress. Eyes: Anicteric sclerae. EOMI. Ears, Nose, Mouth and Throat: Oral mucosa moist, no pallor. Neck: Supple. No bruits. Lungs: Clear to auscultation bilaterally. No wheezing. No rhonchi. Heart: S1, S2. No pericardial friction or rub. Abdomen: Soft, benign, nontender. No rebound. No guarding. No CVA tenderness. Extremities: No clubbing, no cyanosis. No edema. Neurological: Moving extremities. Cranial nerves intact. No tremor. Laboratory Data: Sodium 144, potassium 3.4, BUN 46, creatinine 1.83, glucose 125, magnesium 2.1, AST 86, ALT 69, 99. Impression And Plan: Acute on chronic kidney injury. Previous baseline creatinine was 0.92. 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 Patient denies previous history of obstructive uropathy. Urinalysis did not show active urinary sediment. T he patient developed severe prerenal azotemia. Specific gravity was 1.020 and screen for abnormal ur inary sediment and proteinuria was negative, normal. Patient was screened for acute coronary syndrom e and sepsis workup was initiated, albumin level was low 2.0, which needs to be addressed with workup for proteinuria outpatient. I agree to hold MONTY inhibitor in view of acute kidney injury and continue hydration. Monitor electro lytes and screen for rhabdomyolysis. On admission CK level although was within normal limits. Patie nt can continue cholesterol-lowering medication. Patient was evaluated by Neurology. Abdominal ultrasound was done to rule out acute obstruction. Aaron castillo on ultrasound was found to have mild right hydronephrosis, this needs to be evaluated by urolog ist. Recommend to continue workup for right-sided hydronephrosis, to consult Urology. CRIS/RONNA Voice ID: [id number] Report ID: [id number]
[2020-01-02 14:02] LABS: C.diff Antigen/Toxin Ag neg : Tox neg (NEG : NEG)
--- OUTSIDE RECORDS SUMMARY | 2020-01-03 00:41 | XMS REPORT | Clinical Summary ---
:1940 Author Organization [facility] Address [address] [place] [address] Care Team Providers Name Role Phone Unavailable Primary Care Provider Unavailable Allergies No Known Allergies Medications Medication Sig Dispensed Refills Start Date End Date Status aspirin 81 MG Take 81 mg by 0 [place] spended chewable tablet mouth daily. carvediloL (COREG) Take 3.125 mg by 0 Suspended 3.125 MG tablet mouth 2 (two) times daily with breakfast and dinner. clopidogreL (PLAVIX) Take 75 mg by 0 Suspended 75 mg tablet mouth daily. acetaminophen-codeine Take 1 tablet by 0 Suspended (TYLENOL #3) 300-30 mouth 3 (three) mg per tablet times daily as needed for Pain. levothyroxine Take 100 mcg by 0 Suspended (SYNTHROID, mouth Every LEVOTHROID) 100 MCG morning on an tablet empty stomach. liothyronine Take 5 mcg by 0 Kelsi pended (CYTOMEL) 5 MCG mouth daily. tablet lisinopriL Take 10 mg by 0 Suspe nded (PRINIVIL,ZESTRIL) 10 mouth daily. MG tablet montelukast Take 10 mg by 0 Susp ended (SINGULAIR) 10 mg mouth nightly. tablet multivitamin per Take 1 tablet by 0 Suspended tablet mouth daily. pravastatin Take 40 mg by 0 Susp ended (PRAVACHOL) 40 MG mouth daily. tablet ascorbic acid, Take 500 mg by 0 Suspended vitamin C, (ASCORBIC mouth daily. ACID WITH ALPHONSO HIPS) 500 MG tablet Active Problems Problem Noted Date Encephalopathy, toxic 01/01/2020 Encounters Date Type Specialty Care Team Description 01/01/2020 Hospital Encounter General Internal Sanjay Mckoy, Medicine MD after 01/01/2019 Social History Tobacco Use Types Packs/Day Years Used Date Never Smoker Smokeless Tobacco: Never Used Alcohol Use Drinks/Week oz/Week Comments No Alcohol Habits Answer Date Recorded How often do you have a drink containing alcohol? Never 01/01/2020 How many drinks containing alcohol do you have on a typical Not asked day when you are drinking? How often do you have six or more drinks on one occasion? No t asked Sex Assigned at Date Recorded Not on file Job Start Date Occupation Industry Not on file Not on file Not on file Travel History Travel Start Travel End No recent travel history available. Last Filed Vital Signs Vital Sign Reading Time Taken Blood Pressure 113/64 01/03/2020 12:19 AM CDT Pulse 71 01/03/2020 12:19 AM CDT Temperature 36.2 C (97.2 F) 01/03/2020 12:19 AM CDT Respiratory Rate 18 01/03/2020 12:19 AM CDT Oxygen Saturation 96% 01/03/2020 12:19 AM CDT Inhaled Oxygen Concentration - - Weight 74.2 kg (163 lb 9.6 oz) 01/01/2020 2:59 AM CDT Height 170.2 cm (5' 7") 01/01/2020 2:59 AM CDT Body Mass Index 25.62 01/01/2020 2:59 AM CDT Plan of Treatment Health Maintenance Due Date Last Done Comments PNEUMOCOCCAL 65+ LOW/MEDIUM RISK (1 of 2 - PCV13) 09/08/2007 MEDICARE ANNUAL WELLNESS (YEAR 2 or FIRST YEAR if no 08/27/2008 IPPE) INFLUENZA VACCINE (#1) 2019 Procedures The patient is currently admitted. The information in this section might not be complete until the patient is discharged. Procedure Name Priority Date/Time Associated Comments Diagnosis CT ABDOMEN/PELVIS Routine 01/02/2020 4:43 Result s for this WITHOUT IV CONTRAST PM CDT procedur e are in the results section. US ABDOMEN LIMITED Routine 01/02/2020 12:09 Resul ts for this PM CDT procedure are i n the results section. HEPATITIS PANEL, ACUTE Routine 01/02/2020 10:34 R esults for this AM CDT procedure are i n the results section. (MANUAL DIFFERENTIAL) Routine 01/02/2020 5:05 Re sults for this AM CDT procedure are i n the results section. CBC W/PLT COUNT & AUTO Routine 01/02/2020 5:05 R esults for this DIFFERENTIAL AM CDT procedure are i n the results section. CREATINE KINASE (CK) Add-On 01/02/2020 5:05 Res ults for this AM CDT procedure are i n the results section. COMPREHENSIVE Routine 01/02/2020 5:05 Results fo r this METABOLIC PANEL AM CDT procedure ar e in the results section. CBC W/PLT COUNT & AUTO Routine 01/02/2020 5:05 R esults for this DIFFERENTIAL AM CDT procedure are i n the results section. US RENAL COMPLETE Routine 01/01/2020 6:50 Result s for this PM CDT procedure are i n the results section. MR LUMBAR SPINE Routine 01/01/2020 4:24 Results for this WITHOUT IV CONTRAST PM CDT procedur e are in the results section. MR BRAIN WITHOUT IV Routine 01/01/2020 3:38 Resu lts for this CONTRAST PM CDT procedure are i n the results section. CT BRAIN WITHOUT IV Routine 01/01/2020 2:20 Resu lts for this CONTRAST PM CDT procedure are i n the results section. AMMONIA Routine 01/01/2020 1:25 Results for this PM CDT procedure are i n the results section. VITAMIN B12 Routine 01/01/2020 1:25 Results for this PM CDT procedure are i n the results section. TROPONIN I Routine 01/01/2020 1:25 Results for this PM CDT procedure are i n the results section. XR CHEST 1 VIEW Routine 01/01/2020 6:37 Results for this PORTABLE/BEDSIDE AM CDT procedure a re in the results section. (MANUAL DIFFERENTIAL) Routine 01/01/2020 4:52 Re sults for this AM CDT procedure are i n the results section. CBC W/PLT COUNT & AUTO Routine 01/01/2020 4:52 R esults for this DIFFERENTIAL AM CDT procedure are i n the results section. TROPONIN I Routine 01/01/2020 4:52 Results for this AM CDT procedure are i n the results section. AMYLASE Routine 01/01/2020 4:52 Results for this AM CDT procedure are i n the results section. LIPASE Routine 01/01/2020 4:52 Results for this AM CDT procedure are i n the results section. MAGNESIUM Routine 01/01/2020 4:52 Results for this AM CDT procedure are i n the results section. HEMOGLOBIN A1C Routine 01/01/2020 4:52 Results f or this AM CDT procedure are i n the results section. LIPID PANEL Routine 01/01/2020 4:52 Results for this AM CDT procedure are i n the results section. CBC W/PLT COUNT & AUTO Routine 01/01/2020 4:52 R esults for this DIFFERENTIAL AM CDT procedure are i n the results section. COMPREHENSIVE Routine 01/01/2020 4:52 Results fo r this METABOLIC PANEL AM CDT procedure ar e in the results section. TROPONIN I Routine 01/01/2020 4:52 Results for this AM CDT procedure are i n the results section. BLOOD CULTURE Routine 01/01/2020 4:51 AM CDT BLOOD CULTURE Routine 01/01/2020 4:51 AM CDT after 01/01/[address] abdomen/pelvis without iv contrast (01/02/2020 4:43 PM CDT) Specimen Narrative Performed At FINAL REPORT [employer] ([facility]) CT ABDOMEN AND PELVIS WITHOUT IV CONTRAS T History provided: Mild right hydronephro sis seen on ultrasound TECHNIQUE: Spiral CT cuts were performed through th e abdomen and pelvis with no contrast administered. FINDINGS: Small bilateral pleural effusions are pr esent with mild bibasilar atelectasis. Normal unenhanced appearance of the live r, spleen, and pancreas. Gallbladder normal in size. Kidneys are normal in size. Two minute n onobstructing calculi are present in the lower pole of the right k idney each measuring approximately 2 mm in size. No renal jay culi on the left. There is no evidence of hydronephrosis o r hydroureter. No ureteral or bladder stone is evident. Normal unenhanced appearance of the adre nals. Abdominal aorta normal in caliber. No dilated bowel loops. No pelvic mass. Small amount of nonspeci fic fluid in the rectovesical pouch. Sigmoid diverticulosis, without evidence for diverticulitis. Regional osseous structures unremarkable . IMPRESSION: Minute nonobstructing lower pole right r enal stones. No hydronephrosis or hydroureter. Small bilateral pleural effusions with b ibasilar atelectasis. Small collection of fluid in the rectovesical space. COMMENT: This exam was performed according to our departmental dose-optimization program, which include s automated exposure control, adjustment of the mA and/or kV according to patient size and/or use of iterative reconstruction technique. Signed: Mati Callahan MD Report Verified Date/Time:01/02/2020 16:53:43 Reading Location: [facility] Radiology Readin g Room Procedure Note Interface, External Ris In - 01/02/2020 4:55 PM CDT FINAL REPORT CT ABDOMEN AND PELVIS WITHOUT IV CONTRAS T History provided: Mild right hydronephro sis seen on ultrasound TECHNIQUE: Spiral CT cuts were performed through th e abdomen and pelvis with no contrast administered. FINDINGS: Small bilateral pleural effusions are pr esent with mild bibasilar atelectasis. Normal unenhanced appearance of the live r, spleen, and pancreas. Gallbladder normal in size. Kidneys are normal in size. Two minute n onobstructing calculi are present in the lower pole of the right k idney each measuring approximately 2 mm in size. No renal jay culi on the left. There is no evidence of hydronephrosis o r hydroureter. No ureteral or bladder stone is evident. Normal unenhanced appearance of the adre nals. Abdominal aorta normal in caliber. No dilated bowel loops. No pelvic mass. Small amount of nonspeci fic fluid in the rectovesical pouch. Sigmoid diverticulosis, without evidence for diverticulitis. Regional osseous structures unremarkable . IMPRESSION: Minute nonobstructing lower pole right r enal stones. No hydronephrosis or hydroureter. Small bilateral pleural effusions with b ibasilar atelectasis. Small collection of fluid in the rectovesical space. COMMENT: This exam was performed according to our departmental dose-optimization program, which include s automated exposure control, adjustment of the mA and/or kV according to patient size and/or use of iterative reconstruction technique. Signed: Mati Callahan MD Report Verified Date/Time: 01/02/2020 1 6:53:43 Reading Location: [facility] Radiology Readin g Room Performing Organization Address City/State/Zipcode Phone Number [employer] ([facility]) US abdomen limited (01/02/2020 12:09 PM CDT) Specimen Narrative Performed At FINAL REPORT [employer] ([facility]) LIMITED ABDOMINAL ULTRASOUND History provided: Elevated liver functio n studies Liver measures 15.5 cm in greatest span and shows heterogeneous acoustical pattern. No focal liver lesio n identified. Gallbladder is small in size but shows n o calculi or pericholecystic fluid. Common duct measures 3 mm. Portal vein diameter 8 mm. Right kidney measures 11.9 cm in greates t span and shows a mild degree of hydronephrosis as noted on yes terday's renal ultrasound. Pancreas is poorly visualized due to int erfering bowel gas. IVC and abdominal aorta obscured by bowel gas. Trace intraperitoneal fluid. Small right pleural effusion. IMPRESSION: Heterogeneous liver architecture. Small right pleural effusion. Mild right hydronephrosis again noted. Signed: Mati Callahan MD Report Verified Date/Time:01/02/2020 12:14:36 Reading Location: [facility] Radiology Readin g Room Procedure Note Interface, External Ris In - 01/02/2020 12:16 PM CDT FINAL REPORT LIMITED ABDOMINAL ULTRASOUND History provided: Elevated liver functio n studies Liver measures 15.5 cm in greatest span and shows heterogeneous acoustical pattern. No focal liver lesio n identified. Gallbladder is small in size but shows n o calculi or pericholecystic fluid. Common duct measures 3 mm. Portal vein diameter 8 mm. Right kidney measures 11.9 cm in greates t span and shows a mild degree of hydronephrosis as noted on yes terday's renal ultrasound. Pancreas is poorly visualized due to int erfering bowel gas. IVC and abdominal aorta obscured by bowel gas. Trace intraperitoneal fluid. Small right pleural effusion. IMPRESSION: Heterogeneous liver architecture. Small right pleural effusion. Mild right hydronephrosis again noted. Signed: Mati Callahan MD Report Verified Date/Time: 01/02/2020 1 2:14:36 Reading Location: [facility] Radiology Readin g Room Performing Organization Address City/State/Zipcode Phone Number [facility] Hepatitis panel, acute (01/02/2020 10:34 AM CDT) Hep A IgM Nonreactive Nonreactive [facility] Hep B C IgM [facility]reactive Nonreactive [facility] Hepatitis C Ab Nonreactive Nonreactive [facility] HBsAg Screen Nonreactive Nonreactive [facility] Specimen Blood Narrative Performed At Gag Writer ID - BS [facility] Performing Organization Address City/State/Zipcode Phone Number [facility] [address] [place] [address] CENTER Manual Differential (01/02/2020 5:05 AM CDT)Only the most recent of2 results within the time period is included. % Neutros (manual) 92 % [facility] % Lymphs (manual) 5 % [facility] % Monos (manual) 1 % [facility] % Metamyelo (manual) 1 (H) 0 - 0 % [facility] % Blasts (manual) 1 (H) 0 - 0 % [facility] # Neutros (manual) 10.95 (H) 1.80 - 8.00 K/L [facility] # Lymphs (manual) 0.60 (L) 1.48 - 4.50 K/L [facility] # Monos (manual) 0.12 0.00 - 1.30 K/L [facility] # Metamyelo (manual) 0.12 (H) 0.00 - 0.00 K/L [facility] # Blasts (manual) 0.12 (H) 0.00 - 0.00 K/L [facility] Total Counted 100 [facility] WBC Morphology Normal [facility] RBC Morphology Normal [facility] Large Platelet Present [facility] Specimen Blood Performing Organization Address City/State/Zipcode Phone Number [facility] [address] [place], [place] [phone] CBC with platelet count + automated diff (01/02/2020 5:05 AM CDT)Only the most recent of2 resultswithin the time period is included. WBC 11.9 (H) 4.0 - 10.0 K/L [facility] RBC 3.96 (L) 4.20 - 5.80 M/L [facility] Hemoglobin 12.5 (L) 13.0 - 16.8 GM/DL [facility] Hematocrit 35.0 (L) 36.0 - 50.0 % [facility] MCV 88.4 82.0 - 99.0 fL [facility] MCH 31.6 27.0 - 33.0 pg [facility] MCHC 35.7 32.0 - 36.0 GM/DL [facility] RDW 12.9 12.0 - 15.0 % [facility] Platelets 110 (L) 150 - 430 K/CU MM [facility] MPV 10.9 6.0 - 11.5 fL [facility] nRBC 0 0 - 0 /100 WBC [facility] % Neutros 88 % [facility] % Lymphs 8 % [facility] % Monos 2 % [facility] % Eos 0 % [facility] % Baso 0 % [facility] # Neutros 10.51 (H) 1.80 - 8.00 K/L [facility] # Lymphs 0.90 (L) 1.48 - 4.50 K/L [facility] # Monos 0.24 0.00 - 1.30 K/L [facility] # Eos 0.00 0.00 - 0.50 K/L [facility] # Baso 0.04 0.00 - 0.20 K/L [facility] Immature Granulocytes-Relative 2 (H) 0 - 0 % [facility] Specimen Blood Performing Organization Address City/[facility]/Zipcode Phone Number [facility] [phone] Creatine Kinase (CK) (01/02/2020 5:05 AM CDT) Total CK 903 (H) 40 - 250 U/L [facility] Specimen Blood Narrative Performed At Gag Writer ID - [facility] Performing Organization Address [facility]/Zipcode Phone Number [facility] [address] [place] [phone] Comprehensive metabolic panel (01/02/2020 5:05 AM CDT)Only the most recent of2 resultswithin the time period is included. Protein, Total 4.5 (L) 6.0 - 8.5 gm/dL [facility] Albumin 2.3 (L) 3.5 - 5.0 g/dL [facility] Alkaline Phosphatase 50 30 - 115 U/L [facility] Total Bilirubin 2.2 (H) 0.1 - 1.2 mg/dL [facility] Sodium 137 135 - 148 meq/L [facility] Potassium 3.7 3.6 - 5.5 meq/L [facility] Chloride 106 98 - 106 meq/L [facility] CO2 20 20 - 29 meq/L [facility] BUN 49 (H) 10 - 26 mg/dL [facility] Creatinine 0.92 0.50 - 1.20 mg/dL [facility] Glucose 156 (H) 70 - 110 mg/dL [facility] Calcium 7.8 (L) 8.5 - 10.5 mg/dL [facility] AST 201 (H) 5 - 40 U/L [facility] ALT 81 (H) 5 - 50 U/L [facility] EGFR 80Comment: ESTIMATED GFR mL/min/1.73 sq m [facility] IS NOT ACCURATE CREATININE CLEARANCE IN PREDICTING GLOMERULAR FILTRATION RATE. ESTIMATED GFR IS NOT APPLICABLE FOR DIALYSIS PATIENTS. Specimen Blood Narrative Performed At Gag Writer ID - ADMIN [facility] Performing Organization Address City/State/Zipcode Phone Number [facility] [address] [place], [place] [phone] renal complete (01/01/2020 6:50 PM CDT) Specimen Narrative Performed At FINAL REPORT [employer] ([facility]) TECHNIQUE: Grayscale ultrasound of the k idneys and bladder with Doppler and spectral analysis. INDICATION: SPEEDY. COMPARISON: None. FINDINGS: RIGHT KIDNEY: The right kidney is 12.3 x 5.8 x 5.3 cm. Cortical thickness is 1.4 cm. No solid mass lesio ns. Mild hydronephrosis. Renal artery and vein are patent. LEFT KIDNEY: The left kidney is 11.5 x 5 .9 x 5.3 cm. Cortical thickness is 1.5 cm. No solid mass lesio ns. No hydronephrosis. Renal artery and vein are patent. BLADDER: Unremarkable. IMPRESSION: Mild right-sided hydronephrosis. Left kidney is unremarkable. Signed: Duy Boyd MD Report Verified Date/Time:01/02/2020 01:29:09 Procedure Note Interface, External Ris In - 01/02/2020 1:31 AM CDT FINAL REPORT TECHNIQUE: Grayscale ultrasound of the k idneys and bladder with Doppler and spectral analysis. INDICATION: SPEEDY. COMPARISON: None. FINDINGS: RIGHT KIDNEY: The right kidney is 12.3 x 5.8 x 5.3 cm. Cortical thickness is 1.4 cm. No solid mass lesio ns. Mild hydronephrosis. Renal artery and vein are patent. LEFT KIDNEY: The left kidney is 11.5 x 5 .9 x 5.3 cm. Cortical thickness is 1.5 cm. No solid mass lesio ns. No hydronephrosis. Renal artery and vein are patent. BLADDER: Unremarkable. IMPRESSION: Mild right-sided hydronephrosis. Left kidney is unremarkable. Signed: Duy Boyd MD Report Verified Date/Time: 01/02/2020 0 1:29:09 Performing Organization Address City/State/Zipcode Phone Number [facility] MR spine lumbar without IV contrast (01/01/2020 4:24 PM CDT) Specimen Narrative Performed At FINAL REPORT [facility] MR, SPINE, LUMBAR, WITHOUT CONTRAST INDICATION: Lumbosacral osteoarthritis TECHNIQUE:Multiplanar, multisequence MRI of the lumbar spine without intravenous contrast. COMPARISON: None FINDINGS: Nomenclature: L5-S1 is series 7 image 35 . Alignment: Normal Vertebral bodies: Vertebral body heights are maintained. No marrow edema. There are large T1 and T2 hyperin tense intraosseous hemangiomas within the L2 and L4 vertebr al bodies. Cord: Conus is of normal caliber and sig nal, and terminates at L1. Nerve roots of the cauda equina are of n ormal caliber and distribution. Soft tissues: Paraspinal soft tissues ar e unremarkable. Additional findings by level: T12-L1: No significant canal or foramina l stenosis. L1-2: Mild facet arthropathy. No signifi cant canal or foraminal stenosis. L2-3: Small disc bulge and moderate face t arthropathy. No significant canal or foraminal stenosis. L3-4: Disc bulge and severe facet arthro charity result in moderate canal stenosis. Mild bilateral foraminal stenosis. L4-5: Disc bulge and facet arthropathy r esult in moderate canal stenosis. Mild to moderate bilateral for aminal stenosis. L5-S1: Disc bulge and facet arthropathy result in moderate canal stenosis. Moderate left and mild right f oraminal stenosis. IMPRESSION: Degenerative changes of the lumbar spine without high-grade canal or foraminal stenosis. Signed: Mary Matthews MD Report Verified Date/Time:01/02/2020 16:09:45 Procedure Note Interface, External Ris In - 01/02/2020 4:12 PM CDT FINAL REPORT MR, SPINE, LUMBAR, WITHOUT CONTRAST INDICATION: Lumbosacral osteoarthritis TECHNIQUE: Multiplanar, multisequence M RI of the lumbar spine without intravenous contrast. COMPARISON: None FINDINGS: Nomenclature: L5-S1 is series 7 image 35 . Alignment: Normal Vertebral bodies: Vertebral body heights are maintained. No marrow edema. There are large T1 and T2 hyperin tense intraosseous hemangiomas within the L2 and L4 vertebr al bodies. Cord: Conus is of normal caliber and sig nal, and terminates at L1. Nerve roots of the cauda equina are of n ormal caliber and distribution. Soft tissues: Paraspinal soft tissues ar e unremarkable. Additional findings by level: T12-L1: No significant canal or foramina l stenosis. L1-2: Mild facet arthropathy. No signifi cant canal or foraminal stenosis. L2-3: Small disc bulge and moderate face t arthropathy. No significant canal or foraminal stenosis. L3-4: Disc bulge and severe facet arthro charity result in moderate canal stenosis. Mild bilateral foraminal stenosis. L4-5: Disc bulge and facet arthropathy r esult in moderate canal stenosis. Mild to moderate bilateral for aminal stenosis. L5-S1: Disc bulge and facet arthropathy result in moderate canal stenosis. Moderate left and mild right f oraminal stenosis. IMPRESSION: Degenerative changes of the lumbar spine without high-grade canal or foraminal stenosis. 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 COMPARISON: CT 01/01/2020 FINDINGS: Intracranial: No acute intracranial hemo rrhage. No restricted diffusion to suggest acute infarct. No m ass effect. No hydrocephalus. Visualized intracranial flow voids are o f normal course and caliber. Generalized cerebral atrophy with ex vac uo dilatation of the ventricular system proportionate to sulc i. Mild confluent T2 prolongation within the periventricular and subcortical white matter is a nonspecific finding commonly attrib uted to chronic small vessel ischemic disease. Sinuses: Fluid filling the right maxilla ry sinus. Mastoids are clear. Orbits: Globes are intact. Calvarium \\T\\ scalp: Unremarkable. IMPRESSION: Unremarkable MRI of the brain. 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 COMPARISON: CT 01/01/2020 FINDINGS: Intracranial: No acute intracranial hemo rrhage. No restricted diffusion to suggest acute infarct. No m ass effect. No hydrocephalus. Visualized intracranial flow voids are o f normal course and caliber. Generalized cerebral atrophy with ex vac uo dilatation of the ventricular system proportionate to sulc i. Mild confluent T2 prolongation within the periventricular and subcortical white matter is a nonspecific finding commonly attrib uted to chronic small vessel ischemic disease. Sinuses: Fluid filling the right maxilla ry sinus. Mastoids are clear. Orbits: Globes are intact. Calvarium \\T\\ scalp: Unremarkable. IMPRESSION: Unremarkable MRI of the brain. Signed: Mary Matthews MD Report Verified Date/Time: 01/01/2020 1 6:01:49 Performing Organization Address City/State/Zipcode Phone Number [employer] ([facility]) CT brain without IV contrast (01/01/2020 2:20 PM CDT) Specimen Narrative Performed At FINAL REPORT [employer] ([facility]) CT, BRAIN, WITHOUT CONTRAST INDICATION: Unlisted Reason for Exam weakness TECHNIQUE: Noncontrast axial imaging was obtained from the vertex to the skull base. Axial images were recons tructed using a bone algorithm. DOSE REDUCTION: Dose modulation, iterati ve reconstruction, and/or weight-based adjustment of the mA/kV was utilized to reduce the radiation dose to as low as reasonably a chievable. COMPARISON: None. FINDINGS: Cerebral parenchyma: Diffuse parenchymal volume loss. Appearance of the white matter suggests chronic microv ascular disease. Midline structures: Normally positioned. Cerebellum and brainstem: Commensurate v olume loss. Ventricles: Normal volume. Extra-axial spaces: Unremarkable. Calvarium and skull base: Intact. Paranasal sinuses and mastoid air cells: Visible chambers are clear. Orbital contents: Included portions unre markable. Additional findings: None. IMPRESSION: Chronic involutional changes without acu te intracranial abnormality. If there is persistent clinical concern for intracranial pathology, MR examination is recommended for furthe r characterization. Signed: JR Baker Robert MD Report Verified Date/Time:01/01/2020 14:34:57 Reading Location: [facility] Reading Room Procedure Note Interface, External Ris In - 01/01/2020 2:37 PM CDT FINAL REPORT CT, BRAIN, WITHOUT CONTRAST INDICATION: Unlisted Reason for Exam weakness TECHNIQUE: Noncontrast axial imaging was obtained from the vertex to the skull base. Axial images were recons tructed using a bone algorithm. DOSE REDUCTION: Dose modulation, iterati ve reconstruction, and/or weight-based adjustment of the mA/kV was utilized to reduce the radiation dose to as low as reasonably a chievable. COMPARISON: None. FINDINGS: Cerebral parenchyma: Diffuse parenchymal volume loss. Appearance of the white matter suggests chronic microv ascular disease. Midline structures: Normally positioned. Cerebellum and brainstem: Commensurate v olume loss. Ventricles: Normal volume. Extra-axial spaces: Unremarkable. Calvarium and skull base: Intact. Paranasal sinuses and mastoid air cells: Visible chambers are clear. Orbital contents: Included portions unre markable. Additional findings: None. IMPRESSION: Chronic involutional changes without acu te intracranial abnormality. If there is persistent clinical concern for intracranial pathology, MR examination is recommended for furthe r characterization. Signed: JR Baker Robert MD Report Verified Date/Time: 01/01/2020 1 4:34:57 Reading Location: [facility] Reading Room Performing Organization Address City/State/Zipcode Phone Number [facility] Troponin I (01/01/2020 1:25 PM CDT)Only the most recent of3 resultswithin the time period is included. Troponin I 0.04 0.00 - 0.15 ng/mL [facility] Specimen Blood Narrative Performed At Troponin I (TnI) levels must be interpreted in the con text of [facility] the presenting symptoms and the clinical findings. Flor vated TnI levels indicate myocardial damage, but are not specifi c for ischemic heart disease. Elevated TnI levels are seen i n patients with other cardiac conditions (including myoc arditis and congestive heart failure), and slight TnI elevatio ns occur in patients with other conditions, including sepsis, r enal failure, acidosis, acute neurological disease, and per sistent tachyarrhythmia. Gag Writer ID - ADMIN Performing Organization Address City/State/Zipcode Phone Number [facility] [address] [place], [place] [address] Vitamin B12 (01/01/2020 1:25 PM CDT) Vitamin B12 1,097 (H) 211 - 911 pg/mL [facility] Specimen Blood Narrative Performed At Gag Writer ID - ADMIN [facility] Performing Organization Address City/State/Zipcode Phone Number [facility] [address] [place], [place] [address] Ammonia (01/01/2020 1:25 PM CDT) Ammonia 52 17 - 80 mol/L [facility] Specimen Blood Narrative Performed At Gag Writer ID - ADMIN [facility] Performing Organization Address City/State/Zipcode Phone Number [facility] [address] [place], [place] [address] XR chest 1 view portable / bedside (01/01/2020 6:37 AM CDT) Specimen Narrative Performed At FINAL REPORT [facility] CHEST AP PORTABLE History provided: Pneumonia Comparison studies: None Heart size normal. Lungs grossly clear a nd vascularity normal. Signed: Mati Callahan MD Report Verified Date/Time:01/01/2020 08:10:06 Reading Location: [facility] Radiology [facility] Room Procedure Note Interface, External Ris In - 01/01/2020 8:12 AM CDT FINAL REPORT CHEST AP PORTABLE History provided: Pneumonia Comparison studies: None Heart size normal. Lungs grossly clear a nd vascularity normal. Signed: Mati Callahan MD Report Verified Date/Time: 01/01/2020 0 8:10:06 Reading Location: [facility] Radiology Readin Room Performing Organization Address [facility] Phone Number [facility] Magnesium (01/01/2020 4:52 AM CDT) Magnesium 2.3 1.5 - 3.0 mg/dL [facility] Specimen Blood Narrative Performed At Gag Writer ID - ADMIN [facility] Performing Organization Address City/State/Zipcode Phone Number [facility] [address] [place], [place] [address] Lipase (01/01/2020 4:52 AM CDT) Lipase 9 6 - 51 U/L [facility] Specimen Blood Narrative Performed At Gag Writer ID - ADMIN [facility] Performing Organization Address City/State/Zipcode Phone Number [facility] [place], [place] [address] Hemoglobin A1c (01/01/2020 4:52 AM CDT) Hemoglobin A1C 5.0 4.3 - 6.1 % [facility] Specimen Blood Narrative Performed At Gag Writer ID - ADMIN [facility] Performing Organization Address [facility] Phone Number [facility] [address] [place], [place] [address] Amylase (01/01/2020 4:52 AM CDT) Amylase 66 30 - 110 U/L [facility] Specimen Blood Narrative Performed At Gag Writer ID - ADMIN [facility] Performing Organization Address [facility] Phone Number [facility] [address] [place], [place] [address] Lipid panel (01/01/2020 4:52 AM CDT) Triglycerides 127 mg/dL [facility] Cholesterol 61 mg/dL [facility] HDL 11 mg/dL [facility] LDL Calculated 25 mg/dL [facility] Specimen Blood Narrative Performed At Triglyceride Reference Range: [facility] Low Risk <150 [id number] High Risk 200-499 Very High Risk>=500 Cholesterol Reference Range: Low Risk <200 [id number] High Risk>240 HDL Cholesterol Reference Range: Low Risk >=60 High Risk <40 LDL Cholesterol Reference Range: Optimal<100 Near [id number] Very High >=190 Gag Writer ID - ADMIN Gag Writer ID - ADMIN Gag Writer ID - ADMIN Performing Organization Address [facility] Phone Number [facility] [address] [place], [place] [address] after 01/01/2019 Insurance Payer Benefit Plan / Group Subscriber ID Type Phone A ddress MEDICARE MEDICARE A B xxxxxxxxxxx Medicare Advance Directives For more information, please contact:[address] [phone] Code Status Date Activated Date Inactivated Comments Full Code 01/01/2020 3:51 AM This code status was determined by: Patient
--- OUTSIDE RECORDS SUMMARY | 2020-01-03 00:43 | XMS REPORT | Continuity of Care Document ---
:1940 Author Organization [facility] t Address [address] [place] [address] Dr. Garcia [address] [place] [address] Care Team Providers Name Role Phone TIN MCKOY Attending Clinician Unavailable Tin Mckoy MD Attending Clinician TIN MCKOY Admitting Clinician Unavailable Payers Payer Name Policy Policy Number Effective Expiration Source Type Date Date MEDICAREMEDICARE A xxxxxxxxxxx [facility] Problems Condition Condition Condition Status Onset Resolution Last Treating Co mments Source Name Details Category Date Date Treatment Clinician Date Encephalop Encephalop Disease Active 2019-[address] [facility], athmarla, [facility]06 [facility] 00 Center Allergies, Adverse Reactions, Alerts This patient has no known allergies or adverse reactions. Social History Social Habit Start Date Stop Date Quantity Comments Source History [facility] Alcohol [facility] - Std Drinks [facility] History [facility] Alcohol [facility] - Binge [facility] Sex Assigned At [facility] History SDPA Alcohol 2020-01-01 2020-01-[address] [facility] - Frequency 00:00:00 00:00:00 [facility] Center Smoking Status Start Date Stop Date Source Never smoker [facility] edical [place] Medications Ordered Filled Start Stop Current Ordering Indication Dosage Frequency Signature Comments Components Source Medication Medication Date Date Medication? Clinician (SIG) Name Name ascorbic 2019-03 Yes 500mg QD Take [address] [facility] [address] acid, 0-06 mg by kes - vitamin C, 07:03: mouth Medica l (ASCORBIC 32 daily. Center ACID WITH ALPHONSO HIPS) 500 MG tablet lisinopriL 2019-03 Yes 10mg QD Take [address] (PRINIVIL,Z 0-06 by mouth [facility] - ESTRIL) 10 06:57: daily. Medic al MG tablet 15 Center montelukast 2019-03 Yes 10mg QD Take [address] (SINGULAIR) 0-06 by mouth [facility] - 10 mg 06:57: nightly. Medical tablet 15 [place] multivitami 2019-03 Yes 1{tbl} QD Take [address] n per 0-06 tablet by [facility] - tablet 06:57: mouth Medical 15 daily. [place] pravastatin 2019-03 Yes 40mg QD Take [address] (PRAVACHOL) 0-06 by mouth [facility] - 40 MG 06:57: daily. Medical tablet 15 [place] aspirin 81 2019-03 Yes 81mg QD Take [address] MG chewable 0-06 by mouth [facility] - tablet 06:57: daily. Medical 14 [place] carvediloL 2019-03 Yes 3.125mg Take 3.[address] (COREG) 0-06 mg by [facility] - 3.125 MG 06:57: mouth 2 Medica l tablet 14 (two) Center times daily with breakfast and dinner. clopidogreL 2019-03 Yes 75mg QD Take [address] (PLAVIX) 75 0-06 by mouth [facility] - mg tablet 06:57: daily. Medica l 14 Center acetaminoph 2019-03 Yes 1{tbl} Take [address] en-codeine 0-06 tablet by [facility] - (TYLENOL 06:57: mouth 3 Medica l #3) 300-30 14 (three) Center mg per times tablet daily as needed for Pain. levothyroxi 2019-03 Yes 100ug Take [address] ne 0-06 mcg by [facility] - (SYNTHROID, 06:57: mouth Medic al LEVOTHROID) 14 Every Center 100 MCG morning on tablet an empty stomach. liothyronin 2019-03 Yes 5ug QD Take [address] e (CYTOMEL) 0-06 by mouth [facility] - 5 MCG 06:57: daily. Medical tablet 14 Center Vital Signs Vital Name Observation Time Observation Value Comments Source Systolic blood 2020-01-03 00:19:00 113 mm[Hg] [facility] Diastolic blood 2020-01-03 00:19:00 64 mm[Hg] [facility] Heart rate 2020-01-03 00:19:00 71 /min [facility] Body temperature 2020-01-03 00:19:00 36.22 Melissa [facility] Respiratory rate 2020-01-03 00:19:00 18 /min [facility] Oxygen saturation in 2020-01-03 00:19:00 96 /min [facility] Arterial blood by Medical Ce nter Pulse oximetry Body height 2020-01-01 02:59:00 170.2 cm [facility] Body weight Measured 2020-01-01 02:59:00 74.208 kg [facility] BMI 2020-01-01 02:59:00 25.62 kg/m2 [facility] Procedures Procedure Date / Time Performed Performing Clinician Sour e CT ABDOMEN/PELVIS WITHOUT 2020-01-02 16:43:00 Caleb Salvador [facility] IV CONTRAST [facility] US ABDOMEN LIMITED 2020-01-02 12:09:00 [facility] HEPATITIS PANEL, ACUTE 2020-01-02 10:34:00 [facility] COMPREHENSIVE METABOLIC 2020-01-02 05:05:00 [facility] CREATINE KINASE (CK) 2020-01-02 05:05:00 Maximiliano Alston [facility] CBC W/PLT COUNT & AUTO 2020-01-02 05:05:00 [place] [facility] S [facility] DIFFERENTIAL [facility] (MANUAL DIFFERENTIAL) 2020-01-02 05:05:00 [place] [facility] US RENAL COMPLETE 2020-01-01 18:50:00 Caleb Salvador [facility] MR LUMBAR SPINE WITHOUT 2020-01-01 16:24:[address] [facility] IV CONTRAST [facility] MR BRAIN WITHOUT IV 2020-01-01 15:38:00 Dallas Carreno [facility] - CONTRAST [facility] CT BRAIN WITHOUT IV 2020-01-01 14:20:[address] [facility] CONTRAST [facility] TROPONIN I 2020-01-01 13:25:00 Sanjay Mckoy [facility] VITAMIN B12 2020-01-01 13:25:00 Wai Haynes [facility] AMMONIA 2020-01-01 13:25:00 Wai Haynes [facility] XR CHEST 1 VIEW 2020-01-01 06:37:00 [facility] COMPREHENSIVE METABOLIC 2020-01-01 04:52:[address] [facility] LIPID PANEL 2020-01-01 04:52:00 Sanjay Mckoy [facility] HEMOGLOBIN A1C 2020-01-01 04:52:00 Sanjay Mckoy [facility] MAGNESIUM 2020-01-01 04:52:00 Sanjay Mckoy [facility] LIPASE 2020-01-01 04:52:00 Sanjay Mckoy [facility] AMYLASE 2020-01-01 04:52:00 [facility] TROPONIN I 2020-01-01 04:52:00 Sanjay Mckoy [facility] CBC W/PLT COUNT & AUTO 2020-01-01 04:52:00 Sanjay Mckoy [facility] DIFFERENTIAL [facility] (MANUAL DIFFERENTIAL) 2020-01-01 04:52:00 Sanjay Mckoy [facility] BLOOD CULTURE 2020-01-01 04:51:00 Sanjay Mckoy [facility] Plan of Care Planned Activity Planned Date Details Comments Source Future Scheduled 2019-11-27 INFLUENZA VACCINE (#1) [facility] Test 00:00:00 [code = INFLUENZA Medical Ce nter VACCINE (#1)] Future Scheduled 2008-08-[address] [facility] - Test 00:00:00 WELLNESS (YEAR 2 or Medical Center FIRST YEAR if no IPPE) [code = MEDICARE ANNUAL WELLNESS (YEAR 2 or FIRST YEAR if no IPPE)] Future Scheduled 2007-09-08 PNEUMOCOCCAL 65+ [facility] - Test 00:00:00 LOW/MEDIUM RISK (1 of [facility] 2 - PCV13) [code = PNEUMOCOCCAL 65+ LOW/MEDIUM RISK (1 of 2 - PCV13)] Results Test Description Test Time Test Comments Results Result Comments Source Hepatitis panel, acute 2020-01-02 17:41:00 Test Item Value Reference Range Interpretation Comme nts Hep A IgM (test code = 70088-5) Nonreactive Nonreactive Hep B C IgM (test code = 16436-9) Nonreactive Nonreactive Hepatitis C Ab (test code = 88847-9) Nonreactive Nonreactive HBsAg Screen (test code = 5195-3) Nonreactive Nonreactive SHAUNA (test code = SHAUNA) Chief Analytics Officer ID - BS Lab Interpretation (test code = 92590-8) [facility] [id number] 17:41:00 Test Item Value Reference Range Interpretation Comments HEPATITIS A IGM ANTIBODY (BEAKER) Nonreactive Nonreactive (test code = 498) HEPATITIS B CORE IGM ANTIBODY Nonreactive Nonreactive (BEAKER) (test code = 645) HEPATITIS C ANTIBODY (BEAKER) Nonreactive Nonreactive (test code = 367) HEPATITIS B SURFACE ANTIGEN (2) Nonreactive Nonreactive (BEAKER) (test code = 2585) Chief Analytics Officer ID - BSCT, [id number] 16:53:00Unlisted Reason for Exam - Click Yes and Enter Reason Below->NoFINAL REPORT CT ABDOMEN AND PELVIS WITHOUT IV CONTRAST History provided: Mildright hydronephrosis seen on ultrasound TECHNIQUE: Spiral CT cuts were performed through the abdomenand pelvis with no contrast administered. FINDINGS: Small bilateral pleural effusions are present with mild bibasilar atelectasis. Normal unenhanced appearance of the liver, spleen, and pancreas. Gallbladder normal in size. Kidneys are normal in size. Two minute nonobstructing calculi are present in the lower pole of the right kidney each measuring approximately 2 mm in size. No renal calculi on the left. There is no evidence of hydronephrosis or hydroureter. No ureteral or bladder stone is evident.Normal unenhanced appearance of the adrenals. Abdominal aorta normal in caliber. No dilated bowel loops. No pelvic mass. Small amount of nonspecific fluid in the rectovesical pouch. Sigmoid diverticulosis, without evidence for diverticulitis. Regional osseous structures unremarkable. IMPRESSION: Minute nonobstructing lower pole right renal stones. No hydronephrosis or hydroureter. Small bilateral pleural effusions with bibasilar atelectasis. Small collection of fluid in the rectovesical space. COMMENT: This exam was performed according to our departmental dose-optimization program, which includes automated exposure control, adjustment of the mA and/or kV according to patient size and/or use of iterative reconstruction technique. Signed: Jayme Callahan MDReport Verified Date/Time: 01/02/2020 16:53:43 Reading Location: [facility] Radiology Reading Room CT abdomen/pelvis without iv [id number] 16:53:00Interface, External Ris In - 01/02/2020 4:[address] ABDOMEN AND PELVIS WITHOUT IV CONTRAST History provided: Mild right hydronephrosis seen on ultrasound TECHNIQUE: Spiral CT cuts were performed through the abdomen and pelvis with no contrast administered. FINDINGS: Small bilateral pleural effusions are present with mild bibasilar atelectasis. Normal unenhanced a ppearance of the liver, spleen, and pancreas. Gallbladder normal in size. Kidneys are normal in size. Two minute nonobstructing calculi are present in the lower pole of the right kidney each measuring approximately 2 mm in size. No renal calculi on the left. There is no evidence of hydronephrosis or hy droureter. No ureteral or bladder stone is evident. Normal unenhanced appearance of the adrenals. Abdominal aorta normal in caliber. No dilated bowel loops. No pelvic mass. Small amount of nonspecific fluid in the rectovesical pouch. Sigmoid diverticulosis, without evidence for diverticulitis. Regional osseous structures unremarkable. IMPRESSION: Minute nonobstructing lower pole right renal stones. No hydronephrosis or hydroureter. Small bilateral pleural effusions with bibasilar atelectasis. Small collection of fluid in the rectovesical space. COMMENT: This exam was performed according to our depar tmental dose-optimization program, which includes automated exposure control, adjustment of the mA and/or kV according to patient size and/or use of iterative reconstruction technique. Signed: Jayme Callahan Verified Date/Time: 01/02/2020 16:53:43 Reading Location: [facility] Radiology [facility] WITHOUT [id number] 16:09:00Unlisted Reason for Exam - Click Yes and Enter Reason Below->NoFINAL REPORT MR, SPINE, LUMBAR, WITHOUT CONTRAST INDICATION: Lumbosacral osteo arthritis TECHNIQUE: Multiplanar, multisequence MRI of the lumbar spine without intravenous contrast. COMPARISON: None FINDINGS:Nomenclature: L5-S1 is series 7 image 35. Alignment: Normal Vertebral bodies: Vertebral body heights are maintained. No marrow edema. There are large T1 and T2 hyperintense intraosseous hemangiomas within the L2 and L4 vertebral bodies. Cord: Conus is of normal caliber and signal, and terminates at L1. Nerve roots of the cauda equina are of normal caliber and distribution.Soft tissues: Paraspinal soft tissues are unremarkable. Additional findings by level: T12-L1: No significant canal or foraminal stenosis. L1-2: Mild facet arthropathy. No significant canal or foraminal stenosis. L2-3: Small disc bulge and moderate facet arthropathy. No significant canal or foraminal stenosis. L3-4: Disc bulge and severe facet arthropathy result in moderate canal stenosis. Mild bilateral foraminal stenosis. L4-5: Disc bulge and facet arthropathy result in moderate canal stenosis. Mild to moderate bilateral foraminal stenosis. L5-S1: Disc bulge and facet arthropathy result in moderate canal stenosis. Moderate left and mild right foraminal stenosis. IMPRESSION:Degenerative changes of the lumbar spine without high-grade canal or foraminal stenosis. Signed: Mary Matthewsort Verified Date/Time: 01/02/2020 16:09:45 MR spine lumbar without IV contrast 2020-01-02 16:09:00Interface, External Ris In - 01/02/2020 4:12 PM CDTFINAL REPORT MR, SPINE, LUMBAR, WITHOUT CONTRAST INDICATION: Lumbosacral osteoarthritis TECHNIQUE: Multiplanar, multisequenceMRI of the lumbar spine without intravenous contrast. COMPARISON: None FINDINGS:Nomenclature: L5-S1 is series 7 image 35. Alignment: Normal Vertebral bodies: Vertebral body heights are maintained. No marrow edema. There are large T1 and T2 hyperintense intraosseous hemangiomas within the L2 and L4 vertebral bodies. Cord: Conus is of normal caliber and signal, and terminates at L1. Nerve roots of the cauda equina are of normal caliber and distribution. Soft tissues: Paraspinal soft tissues are unremarkable. Additional findings by level: T12-L1: No significant canal or foraminal stenosis. L1-2: Mildfacet arthropathy. No significant canal or foraminal stenosis. L2-3: Small disc bulge and moderate fa cet arthropathy. No significant canal or foraminal stenosis. L3-4: Disc bulge and severe facet arthropathy result in moderate canal stenosis. Mild bilateral foraminal stenosis. L4-5: Disc bulge and facet arthropathy result in moderate canal stenosis. Mild to moderate bilateral foraminal stenosis. L5-S1: Disc bulge and facet arthropathy result in moderate canal stenosis. Moderate left and mild right foraminal stenosis. IMPRESSION:Degenerative changes of the lumbar spine without high-grade canal or foraminal stenosis. Signed: Mary Matthews Verified Date/Time: 01/02/2020 16:09:45 [facility], [facility], [id number] 12:14:00Abdomen limited area? Add comment if clarification is needed.->LiverReason for exam:->elevatedLFTFINAL REPORT LIMITED ABDOMINAL ULTRASOUND History provided: Elevated liver function studies Liver measures 15.5 cm in greatest span and shows heterogeneous acoustical pattern. Nofocal liver lesion identified. Gallbladder is small in size but shows no calculi or pericholecystic fluid. Common duct measures 3 mm. Portal vein diameter 8 mm. Right kidney measures 11.9 cm in greatest span and shows a mild degree of hydronephrosis as noted on yesterday's renal ultrasound. Pancreas is poorly visualized due to interfering bowel gas. IVC and abdominal aorta obscured by bowel gas. Trace intraperitoneal fluid. Small right pleural effusion. IMPRESSION: Heterogeneous liver architecture. S mall right pleural effusion. Mild right hydronephrosis again noted. Signed: Jayme Callahan MDReport Verified Date/Time: 01/02/2020 12:14:36 Reading Location: [facility] Radiology Reading Room US abdomen [id number] 12:14:00Interface, External Ris In - 01/02/2020 12:16 PM CDTFINAL REPORT LIMITED ABDOM INAL ULTRASOUND History provided: Elevated liver function studies Liver measures 15.5 cm in greatestspan and shows heterogeneous acoustical pattern. No focal liver lesion identified. Gallbladder is small in size but shows no calculi or pericholecystic fluid. Common duct measures 3 mm. Portal vein diameter 8 mm. Right kidney measures 11.9 cm in greatest span and shows a mild degree of hydronephrosis as noted on yesterday's renal ultrasound. Pancreas is poorly visualized due to interfering bowel gas.IVC and abdominal aorta obscured by bowel gas. Trace intraperitoneal fluid. Small right pleural effusion. IMPRESSION: Heterogeneous liver architecture. Small right pleural effusion. Mild right hydronephrosis again noted. Signed: Jayme Callahan MDReport Verified Date/Time: 01/02/2020 12:14:36 Reading Location: [facility] Radiology Reading Room [facility]2020-01-02 10:22:00 Test Item Value Reference Range Interpretation Comments Total CK (test code = 903 U/L 40-250 H 2157-6) SHAUNA (test code = SHAUNA) Chief Analytics Officer ID - ADMIN Lab Interpretation (test Abnormal code = 54561-5) [facility]2020-[facility]-02 10:22:00 Test Item Value Reference Range Interpretation Comments CREATINE KINASE TOTAL (BEAKER) (test 903 U/L 40-250 H code = 380) Chief Analytics Officer ID - ADMINCBC with platelet count + automated [id number] 06:36:00 Test Item Value Reference Range Interpretation Comments WBC (test code = 6690-2) 11.9 4.0- 10.0 K/L H RBC (test code = 789-8) 3.96 4.20- 5.80 M/L L MCHC (test code = 786-4) 35.7 32.0- 36.0 GM/DL L Hematocrit (test code = 4544-3) 35.0 % 36-50 L MCV (test code = 787-2) 88.4 fL 82-99 MCH (test code = 785-6) 31.6 pg 27-33 RDW (test code = 788-0) 12.9 % 12-15 Platelets (test code = 777-3) 110 150- 430 K/CU MM L MPV (test code = 45309-0) 10.9 fL 6-11.5 nRBC (test code = 413) 0 0- 0 /100 WBC % Neutros (test code = 429) 88 % % Lymphs (test code = 430) 8 % % Monos (test code = 431) 2 % % Eos (test code = 432) 0 % % Baso (test code = 437) 0 % # Neutros (test code = 670) 10.51 1.80- 8.00 K/L H # Lymphs (test code = 414) 0.90 1.48- 4.50 K/L L # Monos (test code = 415) 0.24 0.00- 1.30 K/L # Eos (test code = 416) 0.00 0.00- 0.50 K/L # Baso (test code = 417) 0.04 0.00- 0.20 K/L Immature Granulocytes-Relative 2 % 0-0 H (test code = 2801) Lab Interpretation (test code = Abnormal 53395-0) [facility] Hospital[facility] [id number] 06:36:00 Test Item Value Reference Range Interpretation Comments % Neutros (manual) (test code = 92 % 1359) % Lymphs (manual) (test code = 5 % 1360) % Monos (manual) (test code = 1361) 1 % % Metamyelo (manual) (test code = 1 % 0-0 H 258) % Blasts (manual) (test code = 1 % 0-0 H 1358) # Neutros (manual) (test code = 10.95 1.80- 8.00 K/L H 1365) # Lymphs (manual) (test code = 0.60 1.48- 4.50 K/L L 1366) # Monos (manual) (test code = 1367) 0.12 0.00- 1.30 K/L # Metamyelo (manual) (test code = 0.12 0.00- 0.00 K/L H 261) # Blasts (manual) (test code = 0.12 0.00- 0.00 K/L H 1350) Total Counted (test code = 1351) 100 WBC Morphology (test code = 487) Normal RBC Morphology (test code = 762) Normal Large Platelet (test code = 2156) Present Lab Interpretation (test code = Abnormal 46361-0) [facility] W/PLT COUNT & AUTO [id number] 06:36:00 Test Item Value Reference Range Interpretation Comments WHITE BLOOD CELL COUNT (BEAKER) 11.9 K/ L 4.0-10.0 H (test code = 775) RED BLOOD CELL COUNT (BEAKER) 3.96 M/ L 4.20-5.80 L (test code = 761) HEMOGLOBIN (BEAKER) (test code = 12.5 GM/DL 13.0-16.8 L 410) HEMATOCRIT (BEAKER) (test code = 35.0 % 36.0-50.0 L 411) MEAN CORPUSCULAR VOLUME (BEAKER) 88.4 fL 82.0-99.0 (test code = 753) MEAN CORPUSCULAR HEMOGLOBIN 31.6 pg 27.0-33.0 (BEAKER) (test code = 751) MEAN CORPUSCULAR HEMOGLOBIN CONC 35.7 GM/DL 32.0-36.0 (BEAKER) (test code = 752) RED CELL DISTRIBUTION WIDTH 12.9 % 12.0-15.0 (BEAKER) (test code = 412) PLATELET COUNT (BEAKER) (test 110 K/CU MM 150-430 L code = 756) MEAN PLATELET VOLUME (BEAKER) 10.9 fL 6.0-11.5 (test code = 754) NUCLEATED RED BLOOD CELLS 0 /100 WBC 0-0 (BEAKER) (test code = 413) NEUTROPHILS RELATIVE PERCENT 88 % (BEAKER) (test code = 429) LYMPHOCYTES RELATIVE PERCENT 8 % (BEAKER) (test code = 430) MONOCYTES RELATIVE PERCENT 2 % (BEAKER) (test code = 431) EOSINOPHILS RELATIVE PERCENT 0 % (BEAKER) (test code = 432) BASOPHILS RELATIVE PERCENT 0 % (BEAKER) (test code = 437) NEUTROPHILS ABSOLUTE COUNT 10.51 K/ L 1.80-8.00 H (BEAKER) (test code = 670) LYMPHOCYTES ABSOLUTE COUNT 0.90 K/ L 1.48-4.50 L (BEAKER) (test code = 414) MONOCYTES ABSOLUTE COUNT (BEAKER) 0.24 K/ L 0.00-1.30 (test code = 415) EOSINOPHILS ABSOLUTE COUNT 0.00 K/ L 0.00-0.50 (BEAKER) (test code = 416) BASOPHILS ABSOLUTE COUNT (BEAKER) 0.04 K/ L 0.00-0.20 (test code = 417) IMMATURE GRANULOCYTES-RELATIVE 2 % 0-0 H PERCENT (BEAKER) (test code = 2801) (MANUAL DIFFERENTIAL)2020-01-02 06:36:00 Test Item Value Reference Range Interpretation Comments NEUTROPHILS - REL (DIFF) (BEAKER) 92 % (test code = 1359) LYMPHOCYTES - REL (DIFF) (BEAKER) 5 % (test code = 1360) MONOCYTES - REL (DIFF) (BEAKER) 1 % (test code = 1361) METAMYELOCYTES-REL (DIFF) (BEAKER) 1 % 0-0 H (test code = 258) BLASTS - REL (DIFF) (BEAKER) (test 1 % 0-0 H code = 1358) NEUTROPHILS - ABS (DIFF) (BEAKER) 10.95 K/ L 1.80-8.00 H (test code = 1365) LYMPHOCYTES - ABS (DIFF) (BEAKER) 0.60 K/ L 1.48-4.50 L (test code = 1366) MONOCYTES - ABS (DIFF) (BEAKER) 0.12 K/ L 0.00-1.30 (test code = 1367) METAMYELOCTYES - ABS (DIFF) 0.12 K/ L 0.00-0.00 H (BEAKER) (test code = 261) BLASTS - ABS (DIFF) (BEAKER) (test 0.12 K/ L 0.00-0.00 H code = 1350) TOTAL COUNTED (BEAKER) (test code 100 = 1351) WBC MORPHOLOGY (BEAKER) (test code Normal = 487) RBC MORPHOLOGY (BEAKER) (test code Normal = 762) LARGE PLT(BEAKER) (test code = Present 2156) Comprehensive metabolic [id number] 05:41:00 Test Item Value Reference Range Interpretation Comments Protein, Total (test 4.5 6.0- 8.5 gm/dL L code = 2885-2) Albumin (test code = 2.3 g/dL 3.5-5 L 99953-2) Alkaline Phosphatase 50 U/L 30-115 (test code = 6768-6) Total Bilirubin (test 2.2 mg/dL 0.1-1.2 H code = 1975-2) Sodium (test code = 137 meq/L 487-236 6850-2) Potassium (test code = 3.7 meq/L 3.6-5.5 2823-3) Chloride (test code = 106 meq/L 98-106 2075-0) CO2 (test code = 20 meq/L 20-29 2028-9) BUN (test code = 49 mg/dL 10-26 H 3094-0) Creatinine (test code 0.92 mg/dL 0.5-1.2 = 2160-0) Glucose (test code = 156 mg/dL 70-110 H 2345-7) Calcium (test code = 7.8 mg/dL 8.5-10.5 L 84850-2) AST (test code = 201 U/L 5-40 H 1920-8) ALT (test code = 81 U/L 5-50 H 1742-6) EGFR (test code = 80 mL/min/1.73 [place] [address]-5) NOT ACCURATE CREATININE CLEARANCE IN PREDICTING GLOMERULAR FILTRATION RATE . ESTIMATED GFR I S NOT APPLICABLE FOR DIALYSIS PATIENTS. SHAUNA (test code = SHAUNA) Chief Analytics Officer ID - ADMIN Lab Interpretation Abnormal (test code = 95802-9) [facility] METABOLIC [id number] 05:41:00 Test Item Value Reference Range Interpretation Comments TOTAL PROTEIN 4.5 gm/dL 6.0-8.5 L (BEAKER) (test code = 770) ALBUMIN (BEAKER) 2.3 g/dL 3.5-5.0 L (test code = 1145) ALKALINE PHOSPHATASE 50 U/L 30-115 (BEAKER) (test code = 346) BILIRUBIN TOTAL 2.2 mg/dL 0.1-1.2 H (BEAKER) (test code = 377) SODIUM (BEAKER) (test 137 meq/L 135-148 code = 381) POTASSIUM (BEAKER) 3.7 meq/L 3.6-5.5 (test code = 379) CHLORIDE (BEAKER) 106 meq/L 98-106 (test code = 382) CO2 (BEAKER) (test 20 meq/L 20-29 code = 355) BLOOD UREA NITROGEN 49 mg/dL 10-26 H (BEAKER) (test code = 354) CREATININE (BEAKER) 0.92 mg/dL 0.50-1.20 (test code = 358) GLUCOSE RANDOM 156 mg/dL 70-110 H (BEAKER) (test code = 652) CALCIUM (BEAKER) 7.8 mg/dL 8.5-10.5 L (test code = 697) AST (SGOT) (BEAKER) 201 U/L 5-40 H (test code = 353) ALT (SGPT) (BEAKER) 81 U/L 5-50 H (test code = 347) EGFR (BEAKER) (test 80 mL/min/1.73 ESTIMA ADRIAN GFR IS code = 1092) sq m NOT ACCURATE CREATININE CLEARANCE IN PREDICTING GLOMERULAR FILTRATION RATE . ESTIMATED GFR I S NOT APPLICABLE FOR DIALYSIS PATIEN TS. Chief Analytics Officer ID - ADMINU/S, RENAL, [id number] 01:29:00Reason for exam:->AKIFINAL REPORT TECHNIQUE: Grayscale ultrasound of the kidneys and bladder with Doppler and spectral analysis. INDICATION: SPEEDY. COMPARISON: None. FINDINGS: RIGHT KIDNEY: The right kidney is 12.3 x 5.8 x 5.3 cm. Cortical thickness is 1.4 cm. No solid mass lesions. Mild hydronephrosis. Renal artery and vein are patent. LEFT KIDNEY: The left kidney is 11.5 x 5.9 x 5.3 cm. Cortical thickness is 1.5 cm. No solid mass lesions. No hydronephrosis. Renal artery and vein are patent. BLADDER: Unremarkable. IMPRESSION:Mild right- sided hydronephrosis. Left kidney is unremarkable. Signed: Duy Boydeport Verified Date/Time: 01/02/2020 01:29:09 US renal [id number] 01:29:00 Interface, External Ris In - 01/02/2020 1:31 AM CDTFINAL REPORT TECHNIQUE: Grayscale ultrasound of the kidneys and bladder with Doppler and spectral analysis. INDICATION: SPEEDY. COMPARISON: None. FINDINGS: RIGHT KIDNEY: The right kidney is 12.3 x 5.8 x 5.3 cm. Cortical thicknessis 1.4 cm. No solid mass lesions. Mild hydronephrosis. Renal artery and vein are patent. LEFT KIDNEY: The left kidney is 11.5 x 5.9 x 5.3 cm. Cortical thickness is 1.5 cm. No solid mass lesions. No hydronephrosis. Renal artery and vein are patent. BLADDER: Unremarkable. IMPRESSION:Mild right-sided hydronephrosis. Left kidney is unremarkable. 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 COMPARISON: CT 01/01/2020 FINDINGS: Intracranial: No acute intracranial hemorrhage. No restricted diffusion to suggest acute infarct. No mass effect. No hydrocephalus. Visualized intracranial flow voids are of normal course and caliber. Generalized cerebral atrophy with ex vacuo dilatation of the ventricular system proportionate to sulci. Mild confluent T2 prolongation within the periventricular and subcortical white matter is a nonspecific finding commonly attributed to chronic small vessel isch emic disease. Sinuses: Fluid filling the right maxillary sinus. Mastoids are clear. Orbits: Globes are intact. Calvarium \T\ scalp: Unremarkable. IMPRESSION:Unremarkable MRI of the brain. 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 COMPARISON: CT 01/01/2020 FINDINGS: Intracranial: No acute intracranial hemorrhage. No restricted diffusion to suggest acute infarct. No mass effect. No hydrocephalus. Visualized intracranial flow voids are of normal course and caliber. Generalized cerebral atrophy with ex vacuo dilatation of the ventricular system proportionate to sulci. Mild co nfluent T2 prolongation within the periventricular and subcortical white matter is a nonspecific finding commonly attributed to chronic small vessel ischemic disease. Sinuses: Fluid filling the right maxillary sinus. Mastoids are clear. Orbits: Globes are intact. Calvarium \T\ scalp: Unremarkable. IMPR ESSION:Unremarkable MRI of the brain. Signed: Mary Matthews Verified Date/Time: 01/01/2020 16:01:49 [facility] 14[facility]37:00 Test Item Value Reference Range Interpretation Comments Vitamin B12 (test code = 1097 pg/mL 211-911 H 2132-9) SHAUNA (test code = SHAUNA) Chief Analytics Officer ID - ADMIN Lab Interpretation (test Abnormal code = 06972-5) [id number] 14:37:00 Test Item Value Reference Range Interpretation Comments VITAMIN B12 (BEAKER) (test code = 1097 pg/mL 211-911 H 774) Chief Analytics Officer ID - ADMINCT, BRAIN, WITHOUT [id number] 14:34:00Unlisted Reason for Exam - Click Yes and Enter Reason Below->YesUnlisted Reason for Exam->weaknessFINAL REPORT CT, BRAIN, WITHOUT CONTRAST INDICATION: Unlisted Reason for Examweakness TECHNIQUE: Noncontrast axial imaging was obtained from the vertex to the skull base. Axial images were reconstructed using a bone algorithm. DOSE REDUCTION: Dose modulation, iterative reconstruction, and/or weight-based adjustment of the mA/kV was utilized to reduce the radiation dose to as low as reasonably achievable. COMPARISON: None. FINDINGS: Cerebral parenchyma: Diffuse parenchymal volume loss. Appearance of the white matter suggests chronic microvascular disease.Midline structures: [place] positioned.Cerebellum and brainstem: Commensurate volume loss.Ventricles: Normal volume.Extra-axial spaces: Unremarkable. Calvarium and skull base: Intact.Paranasal sinuses and mastoid air cells:Visible chambers are clear.Orbital contents: Included portions unremarkable. Additional findings: Non e. IMPRESSION: Chronic involutional changes without acute intracranial abnormality. If there is persistent clinical concern for intracranial pathology, MR examination is recommended for further characterization. Signed: JR Baker Robert MDReport Verified Date/Time: 01/01/2020 14:34:57 Reading Location: [facility] Radiology Reading Room Electronically signed by: SMITH Matt 01/01/2020 02:34 PMCT brain without IV contrast 2020-01-01 14:34:00Interface, External Ris In - 01/01/2020 2:[address], BRAIN, WITHOUT CONTRAST INDICATION: Unlisted Reason for Examweakness TECHNIQUE: Noncontrast axial imaging wasobtained from the vertex to the skull base. Axial images were reconstructed using a bone algorithm. DOSE REDUCTION: Dose modulation, iterative reconstruction, and/or weight-based adjustment of the mA/kV was utilized to reduce the radiation dose to as low as reasonably achievable. COMPARISON: None. FINDINGS: Cerebral parenchyma: Diffuse parenchymal volume loss. Appearance of the white matter suggests chronic microvascular disease.Midline structures: Normally positioned.Cerebellum and brainstem: Commensurate volume loss.Ventricles: Normal volume.Extra-axial spaces: Unremarkable. Calvarium and skull base: Intact.Paranasal sinuses and mastoid air cells: Visible chambers are clear.Orbital contents: Included portions unremarkable. Additional findings: None. IMPRESSION: Chronic involutional changes without acute intracranial abnormality. If there is persistent clinical concern for intracranial pathology, MR examination is recommended for further characterization. Signed: JR Olivia, Smith Clark Verified Date/Time: 01/01/2020 14:34:57 Reading Location: [facility] Radiology Reading Room [facility] Troponin [id number] 14:15:00 Test Item Value Reference Range Interpretation Comments Troponin I (test code = 0.04 ng/mL 0-0.15 49480-8) SHAUNA (test code = SHAUNA) Troponin I (TnI) levels must be interpreted in the context of the presenting symptoms and the clinical findings. Elevated TnI levels indicate myocardial damage, but are not specific for ischemic heart disease. Elevated TnI levels are seen in patients with other cardiac conditions (including myocarditis and congestive heart failure), and slight TnI elevations occur in patients with other conditions, including sepsis, renal failure, acidosis, acute neurological disease, and persistent tachyarrhythmia.Opera tor ID - ADMIN Lab Interpretation (test Normal code = 39518-4) [facility] [id number] 14:15:00 Test Item Value Reference Range Interpretation Comments TROPONIN I (BEAKER) (test code = 0.04 ng/mL 0.00-0.15 397) Troponin I (TnI) levels must be interpreted in the context of the presenting symptoms and the clinical findings. Elevated TnI levels indicate myocardial damage, but are not specific for ischemic heart disease. Elevated TnI levels are seen in patients with other cardiac conditions (including myocarditis and congestive heart failure), and slight TnI elevations occur in patients with other conditions, including sepsis, renal failure, acidosis, acute neurological disease, and persistent tachyarrhythmia.Chief Analytics Officer ID - [id number] 14:01:00 Test Item Value Reference Range Interpretation Comments Ammonia (test code = 52 17- 80 mol/L 51904-4) SHAUNA (test code = SHAUNA) Chief Analytics Officer ID - ADMIN Lab Interpretation (test Normal code = 31199-2) [facility]AMMONIA2020-10-06 14:01:00 Test Item Value Reference Range Interpretation Comments AMMONIA (BEAKER) (test code = 348) 52 mol/L 17-80 Chief Analytics Officer ID - ADMINRAD, CHEST, 1 VIEW, NON [id number] 08:10:00Reason for exam:->PNEUMONIAShould this be performed at the bedside?->YesFINAL REPORT CHEST AP PORTABLE History provided: Pneumonia Comparison studies: None Heart size normal. Lungs grossly clear and vascularity normal. Signed: Jayme Callahan Verified Date/Time: 01/01/2020 08:10:06 Reading Location: [facility] Radiology Reading Room XR chest 1 view portable / [id number] 08:10:00Interface, External Ris In - 01/01/2020 8:12 AM CDTFINAL REPORT CHEST AP PORTABLE History provided: Pneumonia Comparison studies: None Heart size normal. Lungs grossly clear andvascularity normal. Signed: Jayme Callahan Verified Date/Time: 01/01/2020 08:10:06 Reading Location: [facility] Radiology Reading Room [facility] CenterLipid [id number] 05:41:00 Test Item Value Reference Range Interpretation Comments Triglycerides (test 127 mg/dL code = 2571-8) Cholesterol (test code 61 mg/dL = 2093-3) HDL (test code = 11 mg/dL 5-9) LDL Calculated (test 25 mg/dL code = 53044-0) SHAUNA (test code = SHAUNA) Triglyceride Reference Range: Low Risk <150 Borderline 150-199 High Risk 200-499 Very High Risk >=500 Cholesterol Reference Range: Low Risk <200 Borderline 200-239 High Risk >240 HDL Cholesterol Reference Range: Low Risk >=60 High Risk <40 LDL Cholesterol Reference Range: Optimal <100 Near Optimal 100-129 Borderline 130-159 High 160-189 Very High >=190 Chief Analytics Officer ID - ADMINOperator ID - ADMINOperator ID - ADMIN [facility]COM[facility]AB[facility] [id number] 05:41:00 Test Item Value Reference Range Interpretation Comments TOTAL PROTEIN 4.6 gm/dL 6.0-8.5 L (BEAKER) (test code = 770) ALBUMIN (BEAKER) 2.4 g/dL 3.5-5.0 L (test code = 1145) ALKALINE PHOSPHATASE 39 U/L 30-115 (BEAKER) (test code = 346) BILIRUBIN TOTAL 2.4 mg/dL 0.1-1.2 H (BEAKER) (test code = 377) SODIUM (BEAKER) (test 134 meq/L 135-148 L code = 381) POTASSIUM (BEAKER) 4.1 meq/L 3.6-5.5 (test code = 379) CHLORIDE (BEAKER) 105 meq/L 98-106 (test code = 382) CO2 (BEAKER) (test 20 meq/L 20-29 code = 355) BLOOD UREA NITROGEN 42 mg/dL 10-26 H (BEAKER) (test code = 354) CREATININE (BEAKER) 1.32 mg/dL 0.50-1.20 H (test code = 358) GLUCOSE RANDOM 141 mg/dL 70-110 H (BEAKER) (test code = 652) CALCIUM (BEAKER) 7.8 mg/dL 8.5-10.5 L (test code = 697) AST (SGOT) (BEAKER) 119 U/L 5-40 H (test code = 353) ALT (SGPT) (BEAKER) 48 U/L 5-50 (test code = 347) EGFR (BEAKER) (test 53 mL/min/1.73 ESTIMA ADRIAN GFR IS code = 1092) sq m NOT ACCURATE CREATININE CLEARANCE IN PREDICTING GLOMERULAR FILTRATION RATE . ESTIMATED GFR I S NOT APPLICABLE FOR DIALYSIS PATIEN TS. Chief Analytics Officer ID - ADMINLIPID [id number] 05:41:00 Test Item Value Reference Range Interpretation Comments TRIGLYCERIDES (BEAKER) (test code = 127 mg/dL 540) CHOLESTEROL (BEAKER) (test code = 61 mg/dL 631) HDL CHOLESTEROL (BEAKER) (test code 11 mg/dL = 976) LDL CHOLESTEROL CALCULATED (BEAKER) 25 mg/dL (test code = 633) Triglyceride Reference Range: Low Risk <150 Borderline 150-199 High Risk 200-499 Very High Risk >=500Cholesterol Reference Range: Low Risk <200 Borderline 200-239 High Risk >240HDL Cholesterol Reference Range: Low Risk >=60 High Risk <40LDL Cholesterol Reference Range: Optimal <100 Near Optimal 100-129 Borderline 130-159 High 160-189 Very High >=190 Chief Analytics Officer ID - ADMINOperator ID - ADMINOperator ID - ADMINCBC W/PLT COUNT & AUTO [id number] 05:40:00 Test Item Value Reference Range Interpretation Comments WHITE BLOOD CELL COUNT (BEAKER) 12.2 K/ L 4.0-10.0 H (test code = 775) RED BLOOD CELL COUNT (BEAKER) 3.98 M/ L 4.20-5.80 L (test code = 761) HEMOGLOBIN (BEAKER) (test code = 12.7 GM/DL 13.0-16.8 L 410) HEMATOCRIT (BEAKER) (test code = 36.1 % 36.0-50.0 411) MEAN CORPUSCULAR VOLUME (BEAKER) 90.7 fL 82.0-99.0 (test code = 753) MEAN CORPUSCULAR HEMOGLOBIN 31.9 pg 27.0-33.0 (BEAKER) (test code = 751) MEAN CORPUSCULAR HEMOGLOBIN CONC 35.2 GM/DL 32.0-36.0 (BEAKER) (test code = 752) RED CELL DISTRIBUTION WIDTH 12.9 % 12.0-15.0 (BEAKER) (test code = 412) PLATELET COUNT (BEAKER) (test code 83 K/CU MM 150-430 L = 756) MEAN PLATELET VOLUME (BEAKER) 10.1 fL 6.0-11.5 (test code = 754) NUCLEATED RED BLOOD CELLS (BEAKER) 0 /100 WBC 0-0 (test code = 413) (MANUAL DIFFERENTIAL)2020-01-01 05:40:00 Test Item Value Reference Range Interpretation Comments NEUTROPHILS - REL (DIFF) (BEAKER) 90 % (test code = 1359) LYMPHOCYTES - REL (DIFF) (BEAKER) 3 % (test code = 1360) MONOCYTES - REL (DIFF) (BEAKER) 3 % (test code = 1361) BANDS - REL (DIFF) (BEAKER) (test 3 % 0-10 code = 1348) ATYPICAL LYMPHOCYTE - REL (DIFF) 1 % 0-0 H (BEAKER) (test code = 260) NEUTROPHILS - ABS (DIFF) (BEAKER) 10.98 K/ L 1.80-8.00 H (test code = 1365) LYMPHOCYTES - ABS (DIFF) (BEAKER) 0.37 K/ L 1.48-4.50 L (test code = 1366) MONOCYTES - ABS (DIFF) (BEAKER) 0.37 K/ L 0.00-1.30 (test code = 1367) BANDS-ABS (DIFF) (BEAKER) (test 0.4 K/ L 0.0-0.8 code = 1349) ATYPICAL LYMPHOCYTES - ABS (DIFF) 0.12 K/ L 0.00-0.00 H (BEAKER) (test code = 263) TOTAL COUNTED (BEAKER) (test code 100 = 1351) BANDS + SEGMENTED NEUTROPHILS 11.35 (BEAKER) (test code = 1352) WBC MORPHOLOGY (BEAKER) (test code Normal = 487) PLT MORPHOLOGY (BEAKER) (test code Normal = 486) RBC MORPHOLOGY (BEAKER) (test code Normal = 762) [id number] 05:39:00 Test Item Value Reference Range Interpretation Comments Lipase (test code = 9 U/L 3040-3) SHAUNA (test code = SHAUNA) Chief Analytics Officer ID - ADMIN Lab Interpretation (test Normal code = 62608-5) [facility]LIPASE2020-[facility] 05:39:00 Test Item Value Reference Range Interpretation Comments LIPASE (BEAKER) (test code = 749) 9 U/L Chief Analytics Officer ID - [id number] 05:38:00 Test Item Value Reference Range Interpretation Comments Magnesium (test code = 2.3 mg/dL 1.5-3 91254-9) SHAUNA (test code = SHAUNA) Chief Analytics Officer ID - ADMIN Lab Interpretation (test Normal code = 59069-5) [facility]MAGNESIUM2020-10-06 05:38:00 Test Item Value Reference Range Interpretation Comments MAGNESIUM (BEAKER) (test code = 2.3 mg/dL 1.5-3.0 627) Chief Analytics Officer ID - ADMINTROPONIN [id number] 05:36:00 Test Item Value Reference Range Interpretation Comments TROPONIN I (BEAKER) (test code = 0.05 ng/mL 0.00-0.15 397) Troponin I (TnI) levels must be interpreted in the context of the presenting symptoms and the clinical findings. Elevated TnI levels indicate myocardial damage, but are not specific for ischemic heart disease. Elevated TnI levels are seen in patients with other cardiac conditions (including myocarditis and congestive heart failure), and slight TnI elevations occur in patients with other conditions, including sepsis, renal failure, acidosis, acute neurological disease, and persistent tachyarrhythmia.Chief Analytics Officer ID - ADMINTROPONIN [id number] 05:35:00 Test Item Value Reference Range Interpretation Comments TROPONIN I (BEAKER) (test code = 0.05 ng/mL 0.00-0.15 397) Troponin I (TnI) levels must be interpreted in the context of the presenting symptoms and the clinical findings. Elevated TnI levels indicate myocardial damage, but are not specific for ischemic heart disease. Elevated TnI levels are seen in patients with other cardiac conditions (including myocarditis and congestive heart failure), and slight TnI elevations occur in patients with other conditions, including sepsis, renal failure, acidosis, acute neurological disease, and persistent tachyarrhythmia.Chief Analytics Officer ID - [id number] 05:31:00 Test Item Value Reference Range Interpretation Comments Amylase (test code = 66 U/L 30-110 1798-8) SHAUNA (test code = SHAUNA) Chief Analytics Officer ID - ADMIN Lab Interpretation (test Normal code = 92285-8) [facility]AMYLASE2020-10-06 05:31:00 Test Item Value Reference Range Interpretation Comments AMYLASE (BEAKER) (test code = 349) 66 U/L 30-110 Chief Analytics Officer ID - ADMINHemoglobin [id number] 05:18:00 Test Item Value Reference Range Interpretation Comments Hemoglobin A1C (test code 5.0 % 4.3-6.1 = 4548-4) SHAUNA (test code = SHAUNA) Chief Analytics Officer ID - ADMIN Lab Interpretation (test Normal code = 91511-5) [facility] HospitalHEMOGLOBIN [id number] 05:18:00 Test Item Value Reference Range Interpretation Comments HEMOGLOBIN A1C (BEAKER) (test code = 5.0 % 4.3-6.1 368) Chief Analytics Officer ID - ADMIN
== END 2020-01-01 01:39 | disposition short-term general hospital (02) | DRG 872 ==
LOC: ER 11:54 → ERHOLD 14:20 → 2ND 16:15
PROVIDERS: ADMIT Internal Medicine; ATTEND Internal Medicine
PROC: 009U3ZX Drainage of Spinal Canal, Percutaneous Approach, Diagnostic (ICD-10-PCS; principal; 2019-12-31)
DX: A41.9 Sepsis, unspecified organism (principal); G61.0 Guillain-Barre syndrome; N17.9 Acute kidney failure, unspecified; N13.30 Unspecified hydronephrosis; I12.9 Hypertensive chronic kidney disease with stage 1 through stage 4 chronic kidney disease, or unspecified chronic kidney disease; N18.30 Chronic kidney disease, stage 3 unspecified; E03.9 Hypothyroidism, unspecified; E86.9 Volume depletion, unspecified; K21.9 Gastro-esophageal reflux disease without esophagitis; E78.00 Pure hypercholesterolemia, unspecified; M79.652 Pain in left thigh; M79.651 Pain in right thigh; D69.6 Thrombocytopenia, unspecified; Z79.82 Long term (current) use of aspirin; Z79.891 Long term (current) use of opiate analgesic; Z79.899 Other long term (current) drug therapy; Z79.02 Long term (current) use of antithrombotics/antiplatelets; Z79.890 Hormone replacement therapy; Z95.5 Presence of coronary angioplasty implant and graft; Z20.828 Contact with and (suspected) exposure to other viral communicable diseases
CPT/HCPCS: 36415; 51702; 70450; 70496; 71045; 72170; 76700; 76856; 77003; 80048; 80076; 82085; 82306; 82550; 82553; 82945; 83605; 83690; 83735; 83880; 84145; 84157; 84484; 85025; 85049; 85610; 85652; 86403; 87040; 87045; 87046; 87070; 87086; 87088; 87324; 87449; 87804; 89050; 89055; 93005; 93970; 99285; J0696; J0744; J1100; J3370; J7030; J7040; J7050; J7120; Q9967; U0003